=== PATIENT | male | born 1980 | race Caucasian/White ===

== ENCOUNTER 2016-12-01 20:46 | Inpatient (IN) | payer OTHER ==
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
[2016-12-01] MEDS ORDERED: SODIUM CHLORIDE 0.9% 500 ML INFUS.BAG IV ONE ×2 (22:15→22:54)
[2016-12-01] MEDS ORDERED: FAMOTIDINE 20 MG/50 ML IVPB 50 ML IVPB ONE ×2 (22:15→22:16)
[2016-12-01] MEDS ORDERED: ONDANSETRON 4 MG/2 ML VIAL IVPB ONE (22:15)
[2016-12-01] MEDS ORDERED: ONDANSETRON 4 MG/2 ML VIAL ONE (22:16)
[2016-12-01 22:34] LABS: BASOPHIL 0.3 % (0-2.0); EOSINOPHIL 0.1 % (0-4.5); MCH 30.5 pg (25.7-33.7); MCHC 34.3 g/dl (32.0-35.9); MEAN PLT VOLUME 7.2 fl (7.5-11.1); NEUTROPHILS 85.1 % (42.8-82.8); WHITE BLOOD COUNT 16.3 K/mm3 (4.0-10.0)
[2016-12-01 22:36] LABS: PLATELET COUNT 308 K/MM3 (134-434)
[2016-12-01 22:59] LABS: BILIRUBIN,TOTAL 1.5 mg/dL (0.2-1.0); CALCIUM 11.2 mg/dL (8.5-10.1); CREATININE 1.9 mg/dL (0.7-1.3); TOT PROT 8.6 g/dl (6.4-8.2)
[2016-12-01] MEDS ORDERED: morphine CARPU-JECT 2 MG/1 ML DISP.SYRIN IVPUSH ONE (23:11)
[2016-12-01] MEDS ORDERED: morphine CARPU-JECT 2 MG/1 ML DISP.SYRIN ONE (23:15)
[2016-12-01] MEDS ORDERED: METOCLOPRAMIDE HCL INJECTION 10 MG/2 ML VIAL IVPB ONE (23:17)
[2016-12-01] MEDS ORDERED: METOCLOPRAMIDE HCL INJECTION 10 MG/2 ML VIAL ONE (23:19)
[2016-12-02] MEDS ORDERED: METRONIDAZOLE 500 MG PREMIXED 100 ML IVPB ONE ×2 (01:28→01:34)
[2016-12-02] MEDS ORDERED: LEVOFLOXACIN 500 MG IVPB 100 ML IVPB ONE ×2 (01:28→01:34)
[2016-12-02] MEDS ORDERED: morphine CARPU-JECT 2 MG/1 ML DISP.SYRIN IVPUSH ONE (01:30)
[2016-12-02] MEDS ORDERED: morphine CARPU-JECT 2 MG/1 ML DISP.SYRIN ONE (01:33)
[2016-12-02] MEDS ORDERED: KETOROLAC TROMETHAMINE 30 MG/1 ML VIAL IVPUSH ONE (02:03)
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
[2016-12-02] MEDS ORDERED: ACETAMINOPHEN 1000 MG/100 ML VIAL (NON FORMULARY) IVPB PRN (02:07)
[2016-12-02] MEDS ORDERED: SODIUM CHLORIDE 1,000 ML IV SCH (02:15)
[2016-12-02] MEDS ORDERED: KETOROLAC TROMETHAMINE 30 MG/1 ML VIAL ONE (02:15)
[2016-12-02] MEDS: FOLIC ACID INJECTION - 1 MG, THIAMINE HCL 100 MG, MULTIVIT INJECTION ADULT 10 ML in SOD... IVPB ONE ×2 (02:30→04:00)
[2016-12-02 03:57] VITALS: BMI 28.0
[2016-12-02] MEDS: LORAZEPAM CARPU-JECT 2 MG/ML DISP.SYRIN IVPUSH PRN (04:30)
[2016-12-02 08:30] LABS: BASOPHIL 0.3 % (0-2.0); EOSINOPHIL 0.4 % (0-4.5); MCH 31.2 pg (25.7-33.7); MCHC 34.9 g/dl (32.0-35.9); MEAN CELL VOLUME 89.4 fl (80-96); MEAN PLT VOLUME 7.4 fl (7.5-11.1); NEUTROPHILS 81.5 % (42.8-82.8); PLATELET COUNT 172 K/MM3 (134-434); RDW 13.9 % (11.9-15.9)
[2016-12-02 08:35] LABS: WHITE BLOOD COUNT 9.9 K/mm3 (4.0-10.0)
[2016-12-02 08:46] LABS: ALBUMIN 3.7 g/dl (3.4-5.0); ANION GAP 13 (8-16); CALCIUM 8.9 mg/dL (8.5-10.1); CO2 21 mmol/L (21-32); GLUCOSE,RANDOM 94 mg/dL (74-106); MAGNESIUM 1.7 mg/dL (1.8-2.4); SGPT/ALT 42 U/L (12-78)
[2016-12-02] MEDS: ONDANSETRON 4 MG/2 ML VIAL IVPB PRN ×2 (08:47→12:28)
[2016-12-02 08:49] LABS: ALK PHOS 62 U/L (45-117); BILIRUBIN,TOTAL 1.2 mg/dL (0.2-1.0); CREATININE 1.3 mg/dL (0.7-1.3); PHOSPHOROUS 3.3 mg/dL (2.5-4.9); SGOT/AST 32 U/L (15-37); TOT PROT 6.3 g/dl (6.4-8.2)
[2016-12-02 09:16] LABS: URINE APPEARANCE SLCLOUDY; URINE BILIRUBIN NEGATIVE (NEGATIVE); URINE BLOOD NEGATIVE (NEGATIVE); URINE COLOR DKYELLOW; URINE GLUCOSE (UA) NEGATIVE (NEGATIVE); URINE KETONE TRACE (NEGATIVE); URINE LEUK ESTERASE NEGATIVE (NEGATIVE); URINE NITRITE NEGATIVE (NEGATIVE); URINE UROBILINOGEN NEGATIVE E.U./dl (0.2-1.0)
[2016-12-02 09:21] LABS: URINE PROTEIN 1+ (NEGATIVE)
[2016-12-02 09:23] LABS: CALCIUM OXALATE CRYSTALS RARE /hpf (NONE SEEN); URINE HYALINE CAST 7 /lpf; URINE MUCUS RARE; URINE RBC 7 /hpf (0-3); URINE WBC 2 /hpf (3-5)
[2016-12-02] MEDS ORDERED: METRONIDAZOLE 500 MG PREMIXED 100 ML IVPB SCH (10:00)
[2016-12-02] MEDS ORDERED: LACTATED RINGERS SOLUTION 1,000 ML IV SCH (10:15)
--- NOTE | 2016-12-02 10:17 | EKG ---
Test Reason : Blood Pressure : / mmHG Vent. Rate : 108 BPM Atrial Rate : 108 BPM P-R Int : 126 ms QRS Dur : 088 ms QT Int : 308 ms P-R-T Axes : 053 072 017 degrees QTc Int : 412 ms SINUS TACHYCARDIA POSSIBLE LEFT ATRIAL ENLARGEMENT BORDERLINE ECG NO PREVIOUS ECGS AVAILABLE Confirmed by FAUZIA FAITH MD ([id number]) on 12/02/2016 10:17:18 AM Referred By: Confirmed By:FAUZIA FAITH MD
--- NOTE | 2016-12-02 10:23 | HOSP ---
Physical Examination Vital Signs: Vital Signs Temperature 98 F 12/02/16 06:39 Pulse Rate 67 12/02/16 06:39 Respiratory Rate 20 12/02/16 06:39 Blood Pressure 144/86 12/02/16 06:39 O2 Sat by Pulse Oximetry (%) 97 12/02/16 03:15 Labs: CBC, BMP 12/02/16 07:00 12/02/16 07:00 Hospitalist Encounter Assessment: Subjective: PT seen and examined. His abd pain has improved from admission, however now he feels a soreness. He is nauseated and reluctant to eat. Mother at bedside. Objective: PE Neuro: alert, awake, cn 2-12 intact, denies hallucinations, withdrawal symptoms , anxiety Pulm: CTAB CV: s1 s2 rrr no mrg Abd: + tenderness diffuse, pinpoint to LLQ/epigastric region, refers to back and RUQ + BS Ext: Warm, no edema, L patellar abrasion CBCD WBC 9.9 K/mm3 (4.0-10.0) D 12/02/16 07:00 RBC 4.73 M/mm3 (4.00-5.60) 12/02/16 07:00 Hgb 14.8 GM/dL (11.7-16.9) D 12/02/16 07:00 Hct 42.3 % (35.4-49) D 12/02/16 07:00 MCV 89.4 fl (80-96) 12/02/16 07:00 MCHC 34.9 g/dl (32.0-35.9) 12/02/16 07:00 RDW 13.9 % (11.9-15.9) 12/02/16 07:00 Plt Count 172 K/MM3 (134-434) D 12/02/16 07:00 MPV 7.4 fl (7.5-11.1) L 12/02/16 07:00 CMP Sodium 138 mmol/L (136-145) 12/02/16 07:00 Potassium 3.9 mmol/L (3.5-5.1) 12/02/16 07:00 Chloride 104 mmol/L (98-107) 12/02/16 07:00 Carbon Dioxide 21 mmol/L (21-32) 12/02/16 07:00 Anion Gap 13 (8-16) 12/02/16 07:00 BUN 11 mg/dL (7-18) 12/02/16 07:00 Creatinine 1.3 mg/dL (0.7-1.3) D 12/02/16 07:00 Creat Clearance w eGFR > 60 (>60) 12/02/16 07:00 Calcium 8.9 mg/dL (8.5-10.1) D 12/02/16 07:00 Total Bilirubin 1.2 mg/dL (0.2-1.0) H 12/02/16 07:00 AST 32 U/L (15-37) D 12/02/16 07:00 ALT 42 U/L (12-78) D 12/02/16 07:00 Alkaline Phosphatase 62 U/L (45-117) D 12/02/16 07:00 Total Protein 6.3 g/dl (6.4-8.2) L D 12/02/16 07:00 Albumin 3.7 g/dl (3.4-5.0) D 12/02/16 07:00 12/01/16 12/02/16 21:00 07:00 Total Amylase 757 H Lipase 63646 H 82957 H 12/02/16 07:00 Magnesium 1.7 L Current Medications Generic Name Dose Route Start Last Admin Trade Name Freq PRN Reason Stop Dose Admin Acetaminophen 1,000 mg 12/02/16 02:07 Ofirmev Injection - IVPB 12/02/16 20:08 Q6H PRN FEVER OR PAIN Chlordiazepoxide HCl 25 mg 12/02/16 10:28 Librium - PO 12/05/16 10:27 Q4H PRN WITHDRAWAL(CONT SUBST) Chlordiazepoxide HCl 50 mg 12/02/16 11:00 Librium - PO 12/03/16 05:01 [id number] RICARDO Chlordiazepoxide HCl 25 mg 12/03/16 11:00 Librium - PO 12/04/16 05:01 [id number] RICARDO Chlordiazepoxide HCl 15 mg 12/04/16 11:00 Librium - PO 12/05/16 05:01 [id number] RICARDO Folic Acid 1 mg 12/02/16 12:00 Folic Acid - PO DAILY RICARDO Heparin Sodium (Porcine) 5,000 unit 12/02/16 22:00 Heparin - SQ TID RICARDO Pantoprazole Sodium 100 mls @ 200 mls/hr 12/02/16 10:00 12/02/16 11:28 Protonix 40mg Ivpb (Pre-Docked) IVPB 200 mls/hr DAILY RICARDO Administration Lactated Ringer's 1,000 mls @ 100 mls/hr 12/02/16 10:15 12/02/16 11:25 Lactated Ringers Solution IV 100 mls/hr ASDIR RICARDO Administration Lorazepam 1 mg 12/02/16 02:09 12/02/16 04:30 Ativan Injection - IVPUSH 1 mg Q2H PRN Administration ANXIETY Morphine Sulfate 2 mg 12/02/16 10:57 Morphine Injection - IVPUSH Q4H PRN PAIN Multivitamins/Minerals/Vitamin C 1 tab 12/02/16 12:00 Tab-A-Vit - PO DAILY RICARDO Nicotine 21 mg 12/02/16 10:00 12/02/16 11:28 Nicoderm Patch - TD Not Given DAILY RICARDO Ondansetron HCl 4 mg 12/02/16 02:06 12/02/16 08:47 Zofran Injection IVPB 4 mg Q4H PRN Administration NAUSEA AND/OR VOMITING Thiamine HCl 100 mg 12/02/16 12:00 Vitamin B1 - PO DAILY RICARDO Assessment: 36 year old male with hx of ETOH abuse, peptic ulcer disease admitted with abdominal pain. Plan: 1. Acute pancreatitis d/t ETOH - Lipase levels increased today - Will start LR at 100cc/hr - Lipid panel ordered - CTAP final report pending, prelim shows acute pancreatitis - Trial clear liquids 2. ETOH abuse - No active withdrawal symptoms - D/w Dr. Gene Atkins, he is starting librium, pt is active drinker - Will discuss rehab - Daily MVI, Thiamine, folic acid 3. HTN - Likely pain related - Will monitor and manage as needed 4. JOSH - Resolved with fluids - Renal US today - Avoid nephrotoxic agents - Renal consulted 5. Hx peptic ulcer - Protonix IV 6. Hypomagnesemia - Replete 2gm mg x1
[2016-12-02] MEDS ORDERED: chlordiazePOXIDE HCL 25 MG CAPSULE PO PRN (10:28)
--- NOTE | 2016-12-02 10:41 | CONSULT ---
Consult Detox [facility] Reason for Current Admission/Consult: alcohol withdrawal sx & acute pancreatitis Referred by:: Don Álvarez NP - History History of Present Illness: 36 y/o man with a long hx. of alcoholism is admitted because of acute pancreatitis. - History Source History Provided By: Patient, Medical Record - Alcohol/Substance Use Hx Alcohol Use: Yes - Current Drug/Alcohol Use Alcohol Route: Oral Frequency: Daily Amount used: Beer 1-2(6 pack) Date of Last Use: 11/30/16 - Significant Medical Findings: Laboratory Tests 12/01/16 12/01/16 12/02/16 21:00 21:00 07:00 WBC 16.3 H RBC 5.67 H Hgb 17.3 H Hct 50.4 H MCV 89.0 MCHC 34.3 RDW 14.0 Plt Count 308 MPV 7.2 L Neutrophils % 85.1 H Lymphocytes % 4.5 L Monocytes % 10.0 Eosinophils % 0.1 Basophils % 0.3 Sodium 134 L Potassium 4.7 Chloride 95 L Carbon Dioxide 26 Anion Gap 13 BUN 11 Creatinine 1.9 H Creat Clearance w eGFR 39.87 Random Glucose 128 H Calcium 11.2 H Phosphorus Magnesium Total Bilirubin 1.5 H AST 44 H ALT 62 Alkaline Phosphatase 87 LD Total Cancelled Total Protein 8.6 H Albumin 5.0 Total Amylase 757 H Lipase 84055 H Urine Color Urine Appearance Urine pH Ur Specific Irons Urine Protein Urine Glucose (UA) Urine Ketones Urine Blood Urine Nitrite Urine Bilirubin Urine Urobilinogen Ur Leukocyte Esterase Urine RBC Urine WBC Ur Epithelial Cells Calcium Oxalate Crystal Hyaline Casts Urine Mucus Blood Type Antibody Screen 12/02/16 12/02/16 12/02/16 07:00 07:00 07:00 WBC 9.9 D RBC 4.73 Hgb 14.8 D Hct 42.3 D MCV 89.4 MCHC 34.9 RDW 13.9 Plt Count 172 D MPV 7.4 L Neutrophils % 81.5 Lymphocytes % 8.0 D Monocytes % 9.8 Eosinophils % 0.4 D Basophils % 0.3 Sodium Cancelled 138 Potassium Cancelled 3.9 Chloride Cancelled 104 Carbon Dioxide Cancelled 21 Anion Gap Cancelled 13 BUN Cancelled 11 Creatinine Cancelled 1.3 D Creat Clearance w eGFR Cancelled > 60 Random Glucose Cancelled 94 D Calcium Cancelled 8.9 D Phosphorus 3.3 Magnesium 1.7 L Total Bilirubin Cancelled 1.2 H AST Cancelled 32 D ALT Cancelled 42 D Alkaline Phosphatase Cancelled 62 D LD Total 193 Total Protein Cancelled 6.3 L D Albumin Cancelled 3.7 D Total Amylase Lipase 45124 H Urine Color Urine Appearance Urine pH Ur Specific Irons Urine Protein Urine Glucose (UA) Urine Ketones Urine Blood Urine Nitrite Urine Bilirubin Urine Urobilinogen Ur Leukocyte Esterase Urine RBC Urine WBC Ur Epithelial Cells Calcium Oxalate Crystal Hyaline Casts Urine Mucus Blood Type Antibody Screen 12/02/16 12/02/16 12/02/16 08:15 08:25 08:30 WBC RBC Hgb Hct MCV MCHC RDW Plt Count MPV Neutrophils % Lymphocytes % Monocytes % Eosinophils % Basophils % Sodium Potassium Chloride Carbon Dioxide Anion Gap BUN Creatinine Creat Clearance w eGFR Random Glucose Calcium Phosphorus Magnesium Total Bilirubin AST ALT Alkaline Phosphatase LD Total Total Protein Albumin Total Amylase Lipase Urine Color Dkyellow Urine Appearance Slcloudy Urine pH 6.0 Ur Specific Irons 1.014 Urine Protein 1+ H Urine Glucose (UA) Negative Urine Ketones Trace H Urine Blood Negative Urine Nitrite Negative Urine Bilirubin Negative Urine Urobilinogen Negative Ur Leukocyte Esterase Negative Urine RBC 7 Urine WBC 2 Ur Epithelial Cells Rare Calcium Oxalate Crystal Rare Hyaline Casts 7 Urine Mucus Rare Blood Type A POSITIVE A POSITIVE Antibody Screen Negative labs noted, amylase & lipase are elevated CIWA Score - CIWA Score Nausea/Vomitin Muscle Tremors: 4-Moderate,w/Arms Extend Anxiety: 4-Mod. Anxious/Guarded Agitation: 4-Moderately Restless Paroxysmal Sweats: 3 Orientation: 0-Oriented Tacttile Disturbances: 0-None Auditory Disturbances: 0-None Visual Disturbances: 0-None Headache: 0-None Present CIWA-Ar Total Score: 20 Assessment Plan - Diagnosis (1) Pancreatitis Status: Acute Qualifiers: Qualified Code(s): K85.2 - Alcohol induced acute pancreatitis (2) Alcohol dependence with uncomplicated withdrawal Status: Acute - Plan Plan: Start librium detox protocol - Medication Detox Regimen/Protocol: Librium
[2016-12-02] MEDS ORDERED: morphine CARPU-JECT 2 MG/1 ML DISP.SYRIN IVPUSH PRN (10:57)
--- NOTE | 2016-12-02 11:02 | CONSULT ---
Consult - text type - Consultation Consultation Note: Renal Consult for JOSH This is a 36 year old gentleman with PMhx of Peptic Ulcer disease, Choledolithiasis s/p cholecystecomy who presented with Abd pain and found to have acute alcoholic panreatitis with JOSH with BUN/Cr of 11/1.9. Pt states that he was drinking about 6-8 bottle of beer a day at home. Pt also used 6 200mg Advils the day prior to presentation. No fever or chills. + Nausea. + abd tenderness. No flank pain. + dark urine. + hx of hematuria as a teenager. No contrast exposure. Denies any sob, chest pain, JERRY, confusion or lethargy. PMhx: as above Allergies: NKDA Family hx: NC Social Hx: + ETOH ROS: as per HPI Home Meds: Medication Instructions Recorded Omeprazole 10 mg PO DAILY 12/01/16 Vital Signs Temperature 98 F 12/02/16 06:39 Pulse Rate 67 12/02/16 06:39 Respiratory Rate 20 12/02/16 06:39 Blood Pressure 144/86 12/02/16 06:39 O2 Sat by Pulse Oximetry (%) 97 12/02/16 03:15 Intake & Output 11/29/16 11/30/16 12/01/16 12/02/16 23:59 23:59 23:59 23:59 Weight 240 lb 236 lb 4 oz Gen: NAD, awake and alert HEENT: NC/AT, Dry MM, No JVD CVS: RRR, No M/R Lungs: CTA, no rales or wheeze Abd: Soft + tenderness diffusely btu most in the epigastric region Ext: No edema, clubbing or cyanosis : No bladder distension Neuro: No focal defects CBC, BMP 12/02/16 07:00 12/02/16 07:00 Laboratory Tests 12/02/16 12/02/16 12/02/16 07:00 07:00 07:00 MCV 89.4 Phosphorus 3.3 Magnesium 1.7 L Total Bilirubin 1.2 H Lipase 91349 H Urine Protein Urine Ketones U Random Total Protein Pending 12/02/16 08:15 MCV Phosphorus Magnesium Total Bilirubin Lipase Urine Protein 1+ H Urine Ketones Trace H U Random Total Protein Laboratory Tests 12/02/16 07:00 Sodium 138 Potassium 3.9 Chloride 104 Carbon Dioxide 21 Anion Gap 13 BUN 11 Creatinine 1.3 D Creat Clearance w eGFR > 60 Current Medications Acetaminophen (Ofirmev Injection -) 1,000 mg IVPB Q6H PRN PRN Reason: FEVER OR PAIN Stop: 12/02/16 20:08 Chlordiazepoxide HCl (Librium -) 25 mg PO Q4H PRN PRN Reason: WITHDRAWAL(CONT SUBST) Stop: 12/05/16 10:27 Chlordiazepoxide HCl (Librium -) 50 mg PO [id number] [facility] Stop: 12/03/16 05:01 Chlordiazepoxide HCl (Librium -) 25 mg PO [id number] [facility] Stop: 12/04/16 05:01 Chlordiazepoxide HCl (Librium -) 15 mg PO [id number] [facility] Stop: 12/05/16 05:01 Heparin Sodium (Porcine) (Heparin -) 5,000 unit SQ TID RICARDO Pantoprazole Sodium (Protonix 40mg Ivpb (Pre-Docked)) 100 mls @ 200 mls/hr IVPB DAILY [facility] Metronidazole (Flagyl 500mg Premixed Ivpb -) 100 mls @ 100 mls/hr IVPB Q8H-IV RICARDO Levofloxacin (Levaquin 500 Mg Premixed Ivpb -) 100 mls @ 100 mls/hr IVPB DAILY RICARDO Lactated Ringer's (Lactated Ringers Solution) 1,000 mls @ 100 mls/hr IV ASDIR RICARDO Lorazepam (Ativan Injection -) 1 mg IVPUSH Q2H PRN PRN Reason: ANXIETY Last Admin: 12/02/16 04:30 Dose: 1 mg Morphine Sulfate (Morphine Injection -) 2 mg IVPUSH Q4H PRN PRN Reason: PAIN Nicotine (Nicoderm Patch -) 21 mg TD DAILY [facility] Ondansetron HCl (Zofran Injection) 4 mg IVPB Q4H PRN PRN Reason: NAUSEA AND/OR VOMITING Last Admin: 12/02/16 08:47 Dose: 4 mg Thiamine HCl (Vitamin B1 Injection -) 200 mg IVPB DAILY [facility] A/p 36 year old gentleman with PMhx of Peptic Ulcer disease, Choledolithiasis s/p cholecystecomy who presented with Abd pain and found to have acute alcoholic panreatitis with JOSH with BUN/Cr of 11/1.9. #Acute Kidney Injury secondary to volume depletion +/- NSAID use in setting fo acute pancreatitis Renal function improving with IVF Renal US performed, results pending Continue isotonic saline (agree with LR at 100cc per hour) Avoid NSAIDs for pain control as pt still mildly volume depleted Trend BUN/Cr Check UPCR (pending) #Acute Alcoholic Pancreatitis Continue IVF, pain control Trend Lipase #ETOH Abuse Continue Withdrawal protocol #Hypomagnesemia Mag sulfate 2g IV today Thank you Will follow Jayjay Pfeiffer DO
[2016-12-02] MEDS ORDERED: MAGNESIUM SULF 50% (8.12 MEQ/2 ML-1 GM VIAL) IVPB ONE (11:08)
[2016-12-02] MEDS: NICOTINE 21 MG/24 HOURS TOPICAL PATCH TD SCH (11:28)
[2016-12-02] MEDS: PANTOPRAZOLE SODIUM 100 ML IVPB SCH (11:28)
[2016-12-02] MEDS: chlordiazePOXIDE HCL 25 MG CAPSULE PO SCH ×4 (12:02→22:11)
[2016-12-02] MEDS: THIAMINE HCL 100 MG TABLET (FP) PO SCH (12:14)
[2016-12-02] MEDS: MULTIVITAMINS (DAILY MVI) TABLET (FP) PO SCH (12:14)
[2016-12-02] MEDS: FOLIC ACID 1 MG TABLET (FP) PO SCH (12:14)
[2016-12-02 14:58] LABS: URINE MARIJUANA THC NEGATIVE ng/ml (CUTOFF=50)
[2016-12-02 15:56] LABS: CHOLESTEROL 101 mg/dL (50-200); LDL CHOLESTEROL (ONLY SJRH) 41 mg/dL (5-100)
[2016-12-02] MEDS ORDERED: LABETALOL HCL 200 MG TABLET (FP) PO ONE (17:25)
[2016-12-02] MEDS: SIMETHICONE 80 MG TAB.CHEW (FP) PO PRN (18:32)
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
[2016-12-02] MEDS: LACTATED RINGERS SOLUTION 1,000 ML IV SCH ×2 (19:15→21:52)
[2016-12-02] MEDS: HEPARIN NA (PORCINE) 5,000 UNITS/ML 1ML VIAL SQ SCH (22:12)
[2016-12-03] MEDS: LACTATED RINGERS SOLUTION 1,000 ML IV SCH ×3 (03:05→20:49)
[2016-12-03] MEDS: chlordiazePOXIDE HCL 25 MG CAPSULE PO SCH ×4 (05:00→22:33)
[2016-12-03] MEDS: HEPARIN NA (PORCINE) 5,000 UNITS/ML 1ML VIAL SQ SCH ×3 (05:58→22:34)
[2016-12-03 07:37] LABS: BASOPHIL 0.4 % (0-2.0); EOSINOPHIL 0.7 % (0-4.5); MCH 31.6 pg (25.7-33.7); MCHC 35.1 g/dl (32.0-35.9); MEAN CELL VOLUME 89.8 fl (80-96); MEAN PLT VOLUME 7.8 fl (7.5-11.1); NEUTROPHILS 81.6 % (42.8-82.8); PLATELET COUNT 133 K/MM3 (134-434); RDW 13.9 % (11.9-15.9)
[2016-12-03 08:06] LABS: ALBUMIN 3.1 g/dl (3.4-5.0); ALK PHOS 51 U/L (45-117); ANION GAP 11 (8-16); CALCIUM 8.1 mg/dL (8.5-10.1); CO2 25 mmol/L (21-32); CREATININE 0.9 mg/dL (0.7-1.3); GLUCOSE,RANDOM 81 mg/dL (74-106); SGOT/AST 26 U/L (15-37); SGPT/ALT 29 U/L (12-78); TOT PROT 5.8 g/dl (6.4-8.2)
[2016-12-03] MEDS ORDERED: LEVOFLOXACIN 500 MG IVPB 100 ML IVPB SCH (10:00)
[2016-12-03] MEDS ORDERED: THIAMINE HCL 200 MG/2 ML VIAL IVPB SCH (10:00)
[2016-12-03] MEDS: MULTIVITAMINS (DAILY MVI) TABLET (FP) PO SCH (10:15)
[2016-12-03] MEDS: THIAMINE HCL 100 MG TABLET (FP) PO SCH (10:15)
[2016-12-03] MEDS: PANTOPRAZOLE SODIUM 100 ML IVPB SCH (10:15)
[2016-12-03] MEDS: SIMETHICONE 80 MG TAB.CHEW (FP) PO PRN (10:16)
[2016-12-03] MEDS: NICOTINE 21 MG/24 HOURS TOPICAL PATCH TD SCH (10:16)
[2016-12-03] MEDS: FOLIC ACID 1 MG TABLET (FP) PO SCH (10:16)
--- NOTE | 2016-12-03 11:28 | PN ---
Progress Note (short form) - Note Progress Note: Renal Follow up for JOSH pt seen and examined at the bedside continues to have abd pain but now lower in the abd has Nausea tolerating some liquid diet Vital Signs Temperature 98.2 F 12/03/16 06:58 Pulse Rate 112 H 12/03/16 06:58 Respiratory Rate 20 12/03/16 06:58 Blood Pressure 136/80 12/03/16 06:58 O2 Sat by Pulse Oximetry (%) 97 12/02/16 21:00 Intake & Output 11/30/16 12/01/16 12/02/16 12/03/16 23:59 23:59 23:59 23:59 Intake Total 1750 1400 Output Total 1800 Balance -50 1400 Weight 240 lb 236 lb 4 oz Gen: NAD, awake and alert CVS: RRR, No M/R Lungs: CTA, no rales or wheeze Abd: Soft + tenderness Ext: No edema, clubbing or cyanosis CBC, BMP 12/03/16 06:15 12/03/16 06:15 Current Medications Chlordiazepoxide HCl (Librium -) 25 mg PO Q4H PRN PRN Reason: WITHDRAWAL(CONT SUBST) Stop: 12/05/16 10:27 Chlordiazepoxide HCl (Librium -) 25 mg PO [id number] [facility] Stop: 12/04/16 05:01 Last Admin: 12/03/16 10:16 Dose: 25 mg Chlordiazepoxide HCl (Librium -) 15 mg PO [id number] [facility] Stop: 12/05/16 05:01 Folic Acid (Folic Acid -) 1 mg PO DAILY [facility] Last Admin: 12/03/16 10:16 Dose: 1 mg Heparin Sodium (Porcine) (Heparin -) 5,000 unit SQ TID [facility] Last Admin: 12/03/16 05:58 Dose: 5,000 unit Pantoprazole Sodium (Protonix 40mg Ivpb (Pre-Docked)) 100 mls @ 200 mls/hr IVPB DAILY [facility] Last Admin: 12/03/16 10:15 Dose: 200 mls/hr Lactated Ringer's (Lactated Ringers Solution) 1,000 mls @ 200 mls/hr IV ASDIR [facility] Last Admin: 12/03/16 10:16 Dose: 200 mls/hr Lorazepam (Ativan Injection -) 1 mg IVPUSH Q2H PRN PRN Reason: ANXIETY Last Admin: 12/02/16 04:30 Dose: 1 mg Morphine Sulfate (Morphine Injection -) 2 mg IVPUSH Q4H PRN PRN Reason: PAIN Multivitamins/Minerals/Vitamin C (Tab-A-Vit -) 1 tab PO DAILY [facility]ICARDO Last Admin: 12/03/16 10:15 Dose: 1 tab Nicotine (Nicoderm Patch -) 21 mg TD DAILY [facility] Last Admin: 12/03/16 10:16 Dose: 21 mg Ondansetron HCl (Zofran Injection) 4 mg IVPB Q4H PRN PRN Reason: NAUSEA AND/OR VOMITING Last Admin: 12/02/16 12:28 Dose: 4 mg Simethicone (Mylicon -) 80 mg PO QID PRN PRN Reason: GAS Last Admin: 12/03/16 10:16 Dose: 80 mg Thiamine HCl (Vitamin B1 -) 100 mg PO DAILY [facility] Last Admin: 12/03/16 10:15 Dose: 100 mg A/p 36 year old gentleman with PMhx of Peptic Ulcer disease, Choledolithiasis s/p cholecystecomy who presented with Abd pain and found to have acute alcoholic panreatitis with JOSH with BUN/Cr of 11/1.9. #Acute Kidney Injury secondary to volume depletion +/- NSAID use in setting fo acute pancreatitis Renal function now improved to baseline continue isotonic fluids for management of pancreatitis #Acute Alcoholic Pancreatitis Continue IVF, pain control Trend Lipase GI following Jayjay Pfeiffer DO
[2016-12-03] MEDS: LABETALOL HCL 200 MG TABLET (FP) PO PRN (13:39)
--- NOTE | 2016-12-03 18:32 | PN ---
Physical Exam: SUBJECTIVE: Patient seen and examined. He is tolerating clears, he feels someone improved. he had a bowel movement OBJECTIVE: Vital Signs Period Temp Pulse Resp BP Sys/Malhotra Pulse Ox Last 24 Hr 98 F-100.6 F 104-116 18-20 136-158/80-106 95-97 PE Neuro: alert, awake, cn 2-12 intact Pulm: CTAB CV: s1 s2 rrr no mrg Abd: + tenderness epigastric region + bs, soft Ext: Warm, no edema Laboratory Results - last 24 hr 12/03/16 12/03/16 06:15 06:15 WBC 13.0 H D RBC 4.31 Hgb 13.6 Hct 38.7 MCV 89.8 MCHC 35.1 RDW 13.9 Plt Count 133 L D MPV 7.8 Neutrophils % 81.6 Lymphocytes % 8.8 Monocytes % 8.5 Eosinophils % 0.7 Basophils % 0.4 Sodium 138 Potassium 3.5 Chloride 102 Carbon Dioxide 25 Anion Gap 11 BUN 6 L D Creatinine 0.9 D Creat Clearance w eGFR > 60 Random Glucose 81 Calcium 8.1 L Total Bilirubin 1.0 AST 26 ALT 29 D Alkaline Phosphatase 51 Total Protein 5.8 L Albumin 3.1 L Lipase 3621 H 12/02/16 07:00 Triglycerides 52 Cholesterol 101 Total LDL Cholesterol 41 HDL Cholesterol 63 H Active Medications Generic Name Dose Route Start Last Admin Trade Name Freq PRN Reason Stop Dose Admin Chlordiazepoxide HCl 25 mg 12/02/16 10:28 Librium - PO 12/05/16 10:27 Q4H PRN WITHDRAWAL(CONT SUBST) Chlordiazepoxide HCl 25 mg 12/03/16 11:00 12/03/16 17:28 Librium - PO 12/04/16 05:01 25 mg [id number] RICARDO Administration Chlordiazepoxide HCl 15 mg 12/04/16 11:00 Librium - PO 12/05/16 05:01 [id number]-WMB RICARDO Folic Acid 1 mg 12/02/16 12:00 12/03/16 10:16 Folic Acid - PO 1 mg DAILY RICARDO Administration Heparin Sodium (Porcine) 5,000 unit 12/02/16 22:00 12/03/16 13:39 Heparin - SQ 5,000 unit TID RICARDO Administration Pantoprazole Sodium 100 mls @ 200 mls/hr 12/02/16 10:00 12/03/16 10:15 Protonix 40mg Ivpb (Pre-Docked) IVPB 200 mls/hr DAILY RICARDO Administration Lactated Ringer's 1,000 mls @ 200 mls/hr 12/02/16 18:52 12/03/16 10:16 Lactated Ringers Solution IV 200 mls/hr ASDIR RICARDO Administration Labetalol HCl 200 mg 12/03/16 11:29 12/03/16 13:39 Normodyne - PO 200 mg Q6H PRN Administration HYPERTENSION Lorazepam 1 mg 12/02/16 02:09 12/02/16 04:30 Ativan Injection - IVPUSH 1 mg Q2H PRN Administration ANXIETY Morphine Sulfate 2 mg 12/02/16 10:57 Morphine Injection - IVPUSH Q4H PRN PAIN Multivitamins/Minerals/Vitamin C 1 tab 12/02/16 12:00 12/03/16 10:15 Tab-A-Vit - PO 1 tab DAILY RICARDO Administration Nicotine 21 mg 12/02/16 10:00 12/03/16 10:16 Nicoderm Patch - TD 21 mg DAILY RICARDO Administration Ondansetron HCl 4 mg 12/02/16 02:06 12/02/16 12:28 Zofran Injection IVPB 4 mg Q4H PRN Administration NAUSEA AND/OR VOMITING Simethicone 80 mg 12/02/16 18:23 12/03/16 10:16 Mylicon - PO 80 mg QID PRN Administration GAS Thiamine HCl 100 mg 12/02/16 12:00 12/03/16 10:15 Vitamin B1 - PO 100 mg DAILY RICARDO Administration Assessment: 36 year old male with hx of ETOH abuse, peptic ulcer disease admitted with abdominal pain. Plan: 1. Acute pancreatitis d/t ETOH - Lipase improved - Continue LR at 200cc/hr - Advance to full liquids 2. ETOH abuse - Continue librium detox - Discussed rehab options, pt will think about them - Daily MVI, Thiamine, folic acid 3. HTN - Started on labetalol 200mg q6h 4. JOSH - Resolved - Avoid nephrotoxic agents - Renal seeing 5. Hx peptic ulcer - Protonix PO 6. Hypomagnesemia - level in AM Visit type - Emergency Visit Emergency Visit: Yes ED Registration Date: 12/02/16 Care time: The patient presented to the Emergency Department on the above date and was hospitalized for further evaluation of their emergent condition. - New Patient This patient is new to me today: No - Critical Care Critical Care patient: No
[2016-12-03] MEDS: ACETAMINOPHEN 325 MG TABLET (FP) PO PRN (22:38)
--- NOTE | 2016-12-03 23:18 | PN ---
GI Progress Note Subjective: Pain improved, but spiking fever to 101. WBC 16-->9-->13 Marked improvement in renal fxn with normal BUN/Cr LR at 200/hr - Objective Vital Signs: Vital Signs Temperature 101.7 F H 12/03/16 20:56 Pulse Rate 112 H 12/03/16 20:56 Respiratory Rate 18 12/03/16 21:00 Blood Pressure 151/93 12/03/16 20:56 O2 Sat by Pulse Oximetry (%) 95 12/03/16 21:00 Constitutional: Anxious, Diaphoresis HENT: Yes: Normocephalic Neck: Yes: Supple Cardiovascular: Yes: Tachycardia Respiratory: Yes: CTA Bilaterally Gastrointestinal Inspection: Yes: WNL ...Auscultate: Yes: Normoactive Bowel Sounds ...Palpate: Yes: Soft, Tenderness, Epigastium Labs: CBC, BMP 12/03/16 06:15 12/03/16 06:15 Assessment/Plan 36 M with h/o ETOH abuse now with alcohol-induced pancreatitis Rec: Decrease IV to LR 150/ hour Advance diet Re-image pancreas in 24 hours Manage Hypertension Continue Detox protocol Follow closely for detox-related symptoms
[2016-12-03] MEDS ORDERED: LACTATED RINGERS SOLUTION 1,000 ML IV SCH (23:22)
[2016-12-04] MEDS: chlordiazePOXIDE HCL 25 MG CAPSULE PO SCH (05:57)
[2016-12-04] MEDS: ACETAMINOPHEN 325 MG TABLET (FP) PO PRN ×2 (05:57→14:41)
[2016-12-04] MEDS: HEPARIN NA (PORCINE) 5,000 UNITS/ML 1ML VIAL SQ SCH ×3 (06:10→22:24)
[2016-12-04 08:22] LABS: MCH 31.2 pg (25.7-33.7); MCHC 34.2 g/dl (32.0-35.9); MEAN CELL VOLUME 91.1 fl (80-96); PLATELET COUNT 126 K/MM3 (134-434); RDW 13.6 % (11.9-15.9); WHITE BLOOD COUNT 15.6 K/mm3 (4.0-10.0)
[2016-12-04] MEDS ORDERED: PT OWN MED DRAWER 7, Y5N ONE (09:06)
[2016-12-04] MEDS: NICOTINE 21 MG/24 HOURS TOPICAL PATCH TD SCH (09:12)
[2016-12-04] MEDS: FOLIC ACID 1 MG TABLET (FP) PO SCH (09:12)
[2016-12-04] MEDS: THIAMINE HCL 100 MG TABLET (FP) PO SCH (09:12)
[2016-12-04] MEDS: PANTOPRAZOLE 40 MG TABLET (FP) PO SCH (09:12)
[2016-12-04] MEDS: MULTIVITAMINS (DAILY MVI) TABLET (FP) PO SCH (09:12)
[2016-12-04 09:14] LABS: ALBUMIN 2.7 g/dl (3.4-5.0); ANION GAP 11 (8-16); BILIRUBIN,TOTAL 1.4 mg/dL (0.2-1.0); CALCIUM 7.9 mg/dL (8.5-10.1); CO2 26 mmol/L (21-32); CREATININE 0.9 mg/dL (0.7-1.3); GLUCOSE,RANDOM 87 mg/dL (74-106); MAGNESIUM 1.9 mg/dL (1.8-2.4); SGOT/AST 19 U/L (15-37); SGPT/ALT 23 U/L (12-78)
[2016-12-04 09:15] LABS: ALK PHOS 56 U/L (45-117); TOT PROT 5.7 g/dl (6.4-8.2)
[2016-12-04] MEDS ORDERED: POTASSIUM CHLORIDE 40 MEQ/30 ML UNIT DOSE CUP PO ONE (10:15)
[2016-12-04 10:37] LABS: URINE APPEARANCE CLEAR; URINE BILIRUBIN NEGATIVE (NEGATIVE); URINE COLOR LTYELLOW; URINE GLUCOSE (UA) NEGATIVE (NEGATIVE); URINE KETONE NEGATIVE (NEGATIVE); URINE LEUK ESTERASE NEGATIVE (NEGATIVE); URINE NITRITE NEGATIVE (NEGATIVE); URINE PROTEIN NEGATIVE (NEGATIVE); URINE UROBILINOGEN 2.0 E.U/dl E.U./dl (0.2-1.0)
[2016-12-04] MEDS: chlordiazePOXIDE 5 MG CAPSULE PO SCH ×3 (10:40→22:24)
[2016-12-04 10:54] LABS: URINE BLOOD 2+ (NEGATIVE)
--- NOTE | 2016-12-04 10:57 | PN ---
Physical Exam: SUBJECTIVE: Patient seen and examined. He states his tenderness has improved. Denies chills. Events: persistent low grade fevers OBJECTIVE: Vital Signs Period Temp Pulse Resp BP Sys/Malhotra Pulse Ox Last 24 Hr 99.7 F-101.7 F 104-118 18-20 139-151/89-93 95 PE Neuro: alert, awake, cn 2-12 intact Pulm: L base crackles, dry cough noted CV: s1 s2 rrr no mrg Abd: abdominal tenderness improved soft, + bs Ext: Warm, no edema CBCD WBC 15.6 K/mm3 (4.0-10.0) H 12/04/16 06:15 RBC 4.17 M/mm3 (4.00-5.60) 12/04/16 06:15 Hgb 13.0 GM/dL (11.7-16.9) 12/04/16 06:15 Hct 38.0 % (35.4-49) 12/04/16 06:15 MCV 91.1 fl (80-96) 12/04/16 06:15 MCHC 34.2 g/dl (32.0-35.9) 12/04/16 06:15 RDW 13.6 % (11.9-15.9) 12/04/16 06:15 Plt Count 126 K/MM3 (134-434) L 12/04/16 06:15 MPV 8.0 fl (7.5-11.1) 12/04/16 06:15 CMP Sodium 138 mmol/L (136-145) 12/04/16 06:15 Potassium 3.3 mmol/L (3.5-5.1) L 12/04/16 06:15 Chloride 101 mmol/L (98-107) 12/04/16 06:15 Carbon Dioxide 26 mmol/L (21-32) 12/04/16 06:15 Anion Gap 11 (8-16) 12/04/16 06:15 BUN 6 mg/dL (7-18) L 12/04/16 06:15 Creatinine 0.9 mg/dL (0.7-1.3) 12/04/16 06:15 Creat Clearance w eGFR > 60 (>60) 12/04/16 06:15 Calcium 7.9 mg/dL (8.5-10.1) L 12/04/16 06:15 Total Bilirubin 1.4 mg/dL (0.2-1.0) H D 12/04/16 06:15 AST 19 U/L (15-37) D 12/04/16 06:15 ALT 23 U/L (12-78) D 12/04/16 06:15 Alkaline Phosphatase 56 U/L (45-117) 12/04/16 06:15 Total Protein 5.7 g/dl (6.4-8.2) L 12/04/16 06:15 Albumin 2.7 g/dl (3.4-5.0) L 12/04/16 06:15 Urine Test Results Urine Color Ltyellow 12/04/16 09:35 Urine Appearance Clear 12/04/16 09:35 Urine pH 8.0 (5.0-8.0) D 12/04/16 09:35 Ur Specific Wilson 1.003 (1.001-1.035) 12/04/16 09:35 Urine Protein Negative (NEGATIVE) 12/04/16 09:35 Urine Glucose (UA) Negative (NEGATIVE) 12/04/16 09:35 Urine Ketones Negative (NEGATIVE) 12/04/16 09:35 Urine Blood 2+ (NEGATIVE) H 12/04/16 09:35 Urine Nitrite Negative (NEGATIVE) 12/04/16 09:35 Urine Bilirubin Negative (NEGATIVE) 12/04/16 09:35 Ur Leukocyte Esterase Negative (NEGATIVE) 12/04/16 09:35 Urine RBC <1 /hpf (0-3) 12/04/16 09:35 Urine WBC <1 /hpf (3-5) 12/04/16 09:35 Ur Epithelial Cells Rare /hpf (FEW) 12/04/16 09:35 Urine Mucus Rare 12/02/16 08:15 Active Medications Generic Name Dose Route Start Last Admin Trade Name Freq PRN Reason Stop Dose Admin Acetaminophen 650 mg 12/03/16 22:32 12/04/16 05:57 Tylenol - PO 650 mg Q6H PRN Administration FEVER OR PAIN Chlordiazepoxide HCl 25 mg 12/02/16 10:28 Librium - PO 12/05/16 10:27 Q4H PRN WITHDRAWAL(CONT SUBST) Chlordiazepoxide HCl 15 mg 12/04/16 11:00 12/04/16 10:40 Librium - PO 12/05/16 05:01 15 mg [id number] RICARDO Administration Folic Acid 1 mg 12/02/16 12:00 12/04/16 09:12 Folic Acid - PO 1 mg DAILY RICARDO Administration Heparin Sodium (Porcine) 5,000 unit 12/02/16 22:00 12/04/16 06:10 Heparin - SQ 5,000 unit TID RICARDO Administration Labetalol HCl 200 mg 12/03/16 11:29 12/03/16 13:39 Normodyne - PO 200 mg Q6H PRN Administration HYPERTENSION Lorazepam 1 mg 12/02/16 02:09 12/02/16 04:30 Ativan Injection - IVPUSH 1 mg Q2H PRN Administration ANXIETY Multivitamins/Minerals/Vitamin C 1 tab 12/02/16 12:00 12/04/16 09:12 Tab-A-Vit - PO 1 tab DAILY RICARDO Administration Nicotine 21 mg 12/02/16 10:00 12/04/16 09:12 Nicoderm Patch - TD 21 mg DAILY RICARDO Administration Ondansetron HCl 4 mg 12/02/16 02:06 12/02/16 12:28 Zofran Injection IVPB 4 mg Q4H PRN Administration NAUSEA AND/OR VOMITING Pantoprazole Sodium 40 mg 12/04/16 10:00 12/04/16 09:12 Protonix - PO 40 mg DAILY RICARDO Administration Simethicone 80 mg 12/02/16 18:23 12/03/16 10:16 Mylicon - PO 80 mg QID PRN Administration GAS Thiamine HCl 100 mg 12/02/16 12:00 12/04/16 09:12 Vitamin B1 - PO 100 mg DAILY RICARDO Administration Assessment: 36 year old male with hx of ETOH abuse, peptic ulcer disease admitted with abdominal pain found to have acute pancreatitis. Plan: 1. Persistent low grade fevers/Leukocytosis - Concern for ARDS however, CXR shows platelike atelectasis - Stop fluids - Incentive spirometer and ambulation - UA negative - Urine and blood cx pending - CTAP r/o pancreatic necrosis 2. Acute pancreatitis d/t ETOH - Repeat CTAP - Lipase improved - Advance regular diet - GI seeing 3. ETOH abuse - Continue librium detox - Discussed rehab options, pt will think about them - Daily MVI, Thiamine, folic acid 4. HTN - BP controlled - Continue labetalol 200mg q6h 5. JOSH - Resolved - Avoid nephrotoxic agents - Renal seeing 6. Hx peptic ulcer - Protonix PO 7. Hypomagnesemia - Resolved 8. Active smoker - Daily nicotine patch 9. PPX DVT: Heparin TID Visit type - Emergency Visit Emergency Visit: Yes ED Registration Date: 12/02/16 Care time: The patient presented to the Emergency Department on the above date and was hospitalized for further evaluation of their emergent condition. - New Patient This patient is new to me today: No - Critical Care Critical Care patient: No
[2016-12-04 10:58] LABS: URINE RBC <1 /hpf (0-3); URINE WBC <1 /hpf (3-5)
[2016-12-04] MEDS ORDERED: SODIUM CHLORIDE 0.45%/POT 1,000 ML IV SCH (11:45)
--- NOTE | 2016-12-04 19:07 | PN ---
GI Progress Note Subjective: Patient states he is feeling somewhat ill. Abdominal pain improved but still with LUQ/L back pain. Ongoing fevers and leukocytosis CT done today reveals atelectasis, pleural effusions, pancreatic phlegmon-no pseudocyst, abscess or necrosis. - Objective Vital Signs: Vital Signs Temperature 100 F H 12/04/16 16:30 Pulse Rate 104 H 12/04/16 16:30 Respiratory Rate 20 12/04/16 16:30 Blood Pressure 150/95 12/04/16 16:30 O2 Sat by Pulse Oximetry (%) 93 L 12/04/16 09:00 Constitutional: Anxious, Mild Distress HENT: Yes: Normocephalic Neck: Yes: Supple Cardiovascular: Yes: Regular Rate and Rhythm Respiratory: Yes: CTA Bilaterally Gastrointestinal Inspection: Yes: WNL ...Auscultate: Yes: Hypoactive Bowel Sounds ...Palpate: Yes: Tenderness, Epigastium, Other (somewhat tense.) Labs: CBC, BMP 12/04/16 06:15 12/04/16 06:15 Abnormal Lab Results 12/04/16 12/04/16 12/04/16 06:15 06:15 09:35 WBC 15.6 H Plt Count 126 L Potassium 3.3 L BUN 6 L Calcium 7.9 L Total Bilirubin 1.4 H D Total Protein 5.7 L Albumin 2.7 L Lipase 789 H Urine Blood 2+ H - ....Imaging Cat Scan: Report Reviewed Assessment/Plan Evolving pancreatitis. O2 sat 100% Will likely do well. Clinically improved. Cr has dropped but third spacing still a concern Fevers and leukocytosis likely secondary to pancreatic inflammation Cont IVF-d/w Dr Cartagena and will increase to 125/hr LR AbRx started. No objection Tolerating po Start Creon for steatorrhea
[2016-12-04] MEDS: CILASTATIN SODIUM IVPB SCH (22:24)
[2016-12-04] MEDS: IMIPENEM IVPB SCH (22:24)
[2016-12-04] MEDS: SODIUM CHLORIDE IVPB SCH (22:24)
[2016-12-04] MEDS: LIPASE/PROTEASE/AMYLASE 6,000 UNIT CAPSULE PO SCH (22:25)
[2016-12-05] MEDS: IMIPENEM IVPB SCH ×3 (02:08→18:01)
[2016-12-05] MEDS: SODIUM CHLORIDE IVPB SCH ×3 (02:08→18:01)
[2016-12-05] MEDS: CILASTATIN SODIUM IVPB SCH ×3 (02:08→18:01)
[2016-12-05] MEDS: SODIUM CHLORIDE 0.45%/POT 1,000 ML IV SCH ×3 (02:09→20:00)
[2016-12-05] MEDS: LORAZEPAM CARPU-JECT 2 MG/ML DISP.SYRIN IVPUSH PRN (02:26)
[2016-12-05] MEDS: HEPARIN NA (PORCINE) 5,000 UNITS/ML 1ML VIAL SQ SCH ×3 (06:35→22:21)
[2016-12-05] MEDS: chlordiazePOXIDE 5 MG CAPSULE PO SCH (06:54)
[2016-12-05 08:00] LABS: BASOPHIL 0.3 % (0-2.0); EOSINOPHIL 1.3 % (0-4.5); MCH 31.2 pg (25.7-33.7); MCHC 34.8 g/dl (32.0-35.9); MEAN CELL VOLUME 89.9 fl (80-96); MEAN PLT VOLUME 7.9 fl (7.5-11.1); NEUTROPHILS 77.4 % (42.8-82.8); PLATELET COUNT 134 K/MM3 (134-434); RDW 13.7 % (11.9-15.9)
[2016-12-05 08:34] LABS: ALBUMIN 2.7 g/dl (3.4-5.0); ANION GAP 12 (8-16); CALCIUM 8.1 mg/dL (8.5-10.1); CO2 23 mmol/L (21-32); GLUCOSE,RANDOM 74 mg/dL (74-106)
--- NOTE | 2016-12-05 08:34 | CONSULT ---
- Consultation REQUESTING PROVIDER: CONSULT REQUEST: We have been asked to surgically evaluate this patient for ETOH induced pncreatitis PCP:Loretta Ji HISTORY OF PRESENT ILLNESS: Recent/recurrent ETOH intake; admitted w/ abdominal pain and w/u reveals pancreatitis - Past Surgical History Past Surgical History: Yes: Cholecystectomy Medication Instructions Recorded Omeprazole 10 mg PO DAILY 12/01/16 Allergies Allergy/AdvReac Type Severity Reaction Status Date / Time No Known Allergies Allergy Verified 12/01/16 21:11 - Review of Systems CONSTITUTIONAL: Absent: fever, chills, diaphoresis, generalized weakness, malaise, loss of appetite, weight change CARDIOVASCULAR: Absent: chest pain, syncope, palpitations, irregular heart rate, lightheadedness , peripheral edema RESPIRATORY: Absent: cough, shortness of breath, dyspnea with exertion, wheezing, stridor, hemoptysis GASTROINTESTINAL: Absent: abdominal pain, abdominal distension, nausea, vomiting, diarrhea, constipation, melena, hematochezia GENITOURINARY: Absent: dysuria, frequency, urgency, hesitancy, hematuria, flank pain, genital pain MUSCULOSKELETAL: Absent: myalgia, arthralgia, joint swelling, back pain, neck pain SKIN: Absent: rash, itching, pallor HEMATOLOGIC/IMMUNOLOGIC: Absent: easy bleeding, easy bruising, lymphadenopathy NEUROLOGIC: Absent: headache, focal weakness, paresthesias, dizziness, unsteady gait, seizure, mental status changes, bladder or bowel incontinence PSYCHIATRIC: Absent: anxiety, depression, suicidal or homicidal ideation, hallucinations. - Physical Exam GENERAL: Awake, alert, and fully oriented, in no acute distress. HEAD: Normal with no signs of trauma. EYES: PERRL, sclera anicteric, conjunctiva clear. NECK: Normal ROM, supple without lymphadenopathy, JVD, or masses. LUNGS: Clear to auscultation bilat anteriorly. No wheezes, and no crackles. No accessory muscle use. HEART: Regular rate and rhythm. No murmurs ABDOMEN: Soft,minimally tender w/ palpapable epigastric mass/fullness; no flank ecchymosis , not distended, normoactive bowel sounds, no guarding, no rebound, No organomegaly. MUSCULOSKELETAL: Normal ROM at all joints. No bony deformities or tenderness. No CVA tenderness. UPPER EXTREMITIES: 2+ pulses, warm, well-perfused. No cyanosis. Cap refill <2 seconds. No peripheral edema. LOWER EXTREMITIES: 2+ pulses, warm, well-perfused. No calf tenderness. No peripheral edema. NEUROLOGICAL: Normal speech, gait not observed. PSYCH: Cooperative. Good eye contact. Appropriate mood and affect. SKIN: Warm, dry, normal turgor, no rashes or lesions noted. Vital Signs Temperature 100.1 F H 12/05/16 06:39 Pulse Rate 108 H 12/05/16 06:39 Respiratory Rate 20 12/05/16 06:39 Blood Pressure 147/92 12/05/16 06:39 O2 Sat by Pulse Oximetry (%) 93 L 12/04/16 21:00 12/04/16 12/05/16 06:15 06:20 WBC 12.0 H RBC 3.90 L Hgb 12.2 Hct 35.1 L MCV 89.9 MCHC 34.8 RDW 13.7 Plt Count 134 Neutrophils % 77.4 Lymphocytes % 8.9 Monocytes % 12.1 H Eosinophils % 1.3 D Basophils % 0.3 Sodium 138 Potassium 3.3 L Chloride 101 Carbon Dioxide 26 Anion Gap 11 BUN 6 L Creatinine 0.9 12/04/16 11:25 Blood Culture - Pending Blood - Peripheral Venous 12/04/16 09:35 Urine Culture - Pending Urine - Urine Clean Catch 12/04/16 09:45 Blood Culture - Pending Blood - Peripheral Venous Imaging reviewed; labs reviewed IMP: ETOH induced pancreatitis PLAN: Continue present tx; w/u and tx. to date is appropriate; will follow; no indication for surgical intervention at this time. Visit type - Case Type Case Type: ED Admission - Emergency Emergency Visit: Yes ED Registration Date: 12/02/16 Care time: The patient presented to the Emergency Department on the above date and was hospitalized for further evaluation of their emergent condition. - New patient This patient is new to me today: Yes Date on this admission: 12/05/16 - Critical Care Critical Care patient: No
[2016-12-05 08:39] LABS: ALK PHOS 54 U/L (45-117); CREATININE 0.8 mg/dL (0.7-1.3); SGOT/AST 18 U/L (15-37); SGPT/ALT 21 U/L (12-78); TOT PROT 5.5 g/dl (6.4-8.2)
[2016-12-05] MEDS: LIPASE/PROTEASE/AMYLASE 6,000 UNIT CAPSULE PO SCH ×3 (08:44→18:01)
[2016-12-05] MEDS ORDERED: PT OWN MED DRAWER 7, Y5N ONE ×2 (09:12→18:03)
[2016-12-05] MEDS: LABETALOL HCL 200 MG TABLET (FP) PO PRN (09:39)
[2016-12-05] MEDS: NICOTINE 21 MG/24 HOURS TOPICAL PATCH TD SCH (09:39)
[2016-12-05] MEDS: FOLIC ACID 1 MG TABLET (FP) PO SCH ×2 (10:13→14:28)
[2016-12-05] MEDS: THIAMINE HCL 100 MG TABLET (FP) PO SCH ×2 (10:13→14:28)
[2016-12-05] MEDS: MULTIVITAMINS (DAILY MVI) TABLET (FP) PO SCH ×2 (10:13→14:28)
[2016-12-05] MEDS: PANTOPRAZOLE 40 MG TABLET (FP) PO SCH ×2 (10:13→14:28)
--- NOTE | 2016-12-05 14:48 | PN ---
Progress Note (short form) - Note Progress Note: Renal Follow up for JOSH pt seen and examined at the bedside mild pain persists not taking in any oral foods no N/V no sob or chest pain s/p CT of the Abd yesterday Vital Signs Temperature 99.3 F 12/05/16 08:55 Pulse Rate 106 H 12/05/16 08:55 Respiratory Rate 18 12/05/16 08:55 Blood Pressure 158/95 12/05/16 08:55 O2 Sat by Pulse Oximetry (%) 96 12/05/16 09:35 Intake & Output 12/02/16 12/03/16 12/04/16 12/05/16 23:59 23:59 23:59 23:59 Intake Total 1750 5900 1398 1300 Output Total 1800 2200 800 Balance -50 3700 1398 500 Weight 236 lb 4 oz Gen: NAD, awake and alert CVS: RRR, No M/R Lungs: CTA, no rales or wheeze Abd: Soft + tenderness Ext: No edema, clubbing or cyanosis CBC, BMP 12/05/16 06:20 12/05/16 06:20 Current Medications Acetaminophen (Tylenol -) 650 mg PO Q6H PRN PRN Reason: FEVER OR PAIN Last Admin: 12/04/16 14:41 Dose: 650 mg Folic Acid (Folic Acid -) 1 mg PO DAILY RICARDO Last Admin: 12/05/16 14:28 Dose: 1 mg Heparin Sodium (Porcine) (Heparin -) 5,000 unit SQ TID RICARDO Last Admin: 12/05/16 14:28 Dose: 5,000 unit Imipenem/Cilastatin Sodium 1, (000 mg/ Sodium Chloride) 250 mls @ 250 mls/hr IVPB Q8H-IV RICARDO Last Admin: 12/05/16 10:12 Dose: 250 mls/hr Potassium Chloride/Sodium Chloride (1/2ns+20meq Kcl) 1,000 mls @ 125 mls/hr IV ASDIR RICARDO Last Admin: 12/05/16 12:35 Dose: 125 mls/hr Labetalol HCl (Normodyne -) 200 mg PO Q6H PRN PRN Reason: HYPERTENSION Last Admin: 12/05/16 09:39 Dose: 200 mg Lorazepam (Ativan Injection -) 1 mg IVPUSH Q2H PRN PRN Reason: ANXIETY Last Admin: 12/05/16 02:26 Dose: 1 mg Multivitamins/Minerals/Vitamin C (Tab-A-Vit -) 1 tab PO DAILY [facility] Last Admin: 12/05/16 14:28 Dose: 1 tab Nicotine (Nicoderm Patch -) 21 mg TD DAILY [facility] Last Admin: 12/05/16 09:39 Dose: 21 mg Ondansetron HCl (Zofran Injection) 4 mg IVPB Q4H PRN PRN Reason: NAUSEA AND/OR VOMITING Last Admin: 12/02/16 12:28 Dose: 4 mg Pancrelipase (Creon Dr 6,000 Units Capsule) 4 cap PO TIDCM [facility] Last Admin: 12/05/16 11:48 Dose: Not Given Pantoprazole Sodium (Protonix -) 40 mg PO DAILY [facility] Last Admin: 12/05/16 14:28 Dose: 40 mg Simethicone (Mylicon -) 80 mg PO QID PRN PRN Reason: GAS Last Admin: 12/03/16 10:16 Dose: 80 mg Thiamine HCl (Vitamin B1 -) 100 mg PO DAILY [facility] Last Admin: 12/05/16 14:28 Dose: 100 mg A/p 36 year old gentleman with PMhx of Peptic Ulcer disease, Choledolithiasis s/p cholecystecomy who presented with Abd pain and found to have acute alcoholic panreatitis with JOSH with BUN/Cr of 11/1.9. #Acute Kidney Injury secondary to volume depletion +/- NSAID use in setting fo acute pancreatitis Renal function stable Continue IVF as per GI s/p contrast exposure yesterday pt appears evolemic #Acute Alcoholic Pancreatitis/Fever Continue IVF, pain control GI following On Abx as per JUANY Pfeiffer DO
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
--- NOTE | 2016-12-05 16:05 | PN ---
Physical Exam: SUBJECTIVE: Patient seen and examined. He says he feel better than yesterday but worse than when he came in. Events: - Multiple loose stools OBJECTIVE: Vital Signs Period Temp Pulse Resp BP Sys/Malhotra Pulse Ox Last 24 Hr 98.3 F-100.1 F 101-128 18-20 147-158/92-97 93-96 PE Neuro: alert, awake, cn 2-12 intact Pulm: L base crackles, R clear CV: s1 s2 rrr no mrg Abd: abdominal tenderness improved soft, + bs Ext: Warm, no edema Laboratory Results - last 24 hr 12/05/16 12/05/16 06:20 06:20 WBC 12.0 H RBC 3.90 L Hgb 12.2 Hct 35.1 L MCV 89.9 MCHC 34.8 RDW 13.7 Plt Count 134 MPV 7.9 Neutrophils % 77.4 Lymphocytes % 8.9 Monocytes % 12.1 H Eosinophils % 1.3 D Basophils % 0.3 Sodium 134 L Potassium 3.5 Chloride 99 Carbon Dioxide 23 Anion Gap 12 BUN 6 L Creatinine 0.8 Creat Clearance w eGFR > 60 Random Glucose 74 Calcium 8.1 L Total Bilirubin 1.0 D AST 18 ALT 21 Alkaline Phosphatase 54 Total Protein 5.5 L Albumin 2.7 L Active Medications Generic Name Dose Route Start Last Admin Trade Name Conradq PRN Reason Stop Dose Admin Acetaminophen 650 mg 12/03/16 22:32 12/04/16 14:41 Tylenol - PO 650 mg Q6H PRN Administration FEVER OR PAIN Folic Acid 1 mg 12/02/16 12:00 12/05/16 14:28 Folic Acid - PO 1 mg DAILY RICARDO Administration Heparin Sodium (Porcine) 5,000 unit 12/02/16 22:00 12/05/16 14:28 Heparin - SQ 5,000 unit TID RICARDO Administration Imipenem/Cilastatin Sodium 1, 250 mls @ 250 mls/hr 12/04/16 19:00 12/05/16 10: 12 000 mg/ Sodium Chloride IVPB 250 mls/hr Q8H-IV RICARDO Administration Potassium Chloride/Sodium Chloride 1,000 mls @ 125 mls/hr 12/04/16 19:31 12:35 1/2ns+20meq Kcl IV 125 mls/hr ASDIR RICARDO Administration Labetalol HCl 200 mg 12/03/16 11:29 12/05/16 09:39 Normodyne - PO 200 mg Q6H PRN Administration HYPERTENSION Lorazepam 1 mg 12/02/16 02:09 12/05/16 02:26 Ativan Injection - IVPUSH 1 mg Q2H PRN Administration ANXIETY Multivitamins/Minerals/Vitamin C 1 tab 12/02/16 12:00 12/05/16 14:28 Tab-A-Vit - PO 1 tab DAILY RICARDO Administration Nicotine 21 mg 12/02/16 10:00 12/05/16 09:39 Nicoderm Patch - TD 21 mg DAILY RICARDO Administration Ondansetron HCl 4 mg 12/02/16 02:06 12/02/16 12:28 Zofran Injection IVPB 4 mg Q4H PRN Administration NAUSEA AND/OR VOMITING Pancrelipase 4 cap 12/04/16 19:30 12/05/16 11:[address] 6,000 Units Capsule PO Not Given TIDCM RICARDO Pantoprazole Sodium 40 mg 12/04/16 10:00 12/05/16 14:28 Protonix - PO 40 mg DAILY RICARDO Administration Simethicone 80 mg 12/02/16 18:23 12/03/16 10:16 Mylicon - PO 80 mg QID PRN Administration GAS Thiamine HCl 100 mg 12/02/16 12:00 12/05/16 14:28 Vitamin B1 - PO 100 mg DAILY RICARDO Administration Assessment: 36 year old male with hx of ETOH abuse, peptic ulcer disease admitted with abdominal pain found to have acute pancreatitis. Plan: 1. Persistent low grade fevers/Leukocytosis - Fevers improved - CTAP with increased phlegmonous changes - Urine and blood cx negative - Continue Imipenem (day 1) - Continue IVF - Monitor resp changes, BUN/cr - Appreciate ID consult 2. Acute pancreatitis d/t ETOH - See above - Pancrelipase 6000units TID - Clear liquids - GI seeing 3. Diarrhea - C diff and stool cx sent 4. ETOH abuse - Completed librium taper - Daily MVI, Thiamine, folic acid 5. HTN - Continue Labetalol 200mg q6h 6. JOSH - Resolved 7. Hx peptic ulcer - Protonix PO 8. Hypomagnesemia - Resolved 9. Active smoker - Daily nicotine patch 10. PPX DVT: Heparin TID Visit type - Emergency Visit Emergency Visit: Yes ED Registration Date: 12/02/16 Care time: The patient presented to the Emergency Department on the above date and was hospitalized for further evaluation of their emergent condition. - New Patient This patient is new to me today: No - Critical Care Critical Care patient: No
[2016-12-06] MEDS: IMIPENEM IVPB SCH ×3 (01:25→17:55)
[2016-12-06] MEDS: CILASTATIN SODIUM IVPB SCH ×3 (01:25→17:55)
[2016-12-06] MEDS: SODIUM CHLORIDE IVPB SCH ×3 (01:25→17:55)
[2016-12-06] MEDS: HEPARIN NA (PORCINE) 5,000 UNITS/ML 1ML VIAL SQ SCH ×3 (05:51→21:32)
[2016-12-06] MEDS: SODIUM CHLORIDE 0.45%/POT 1,000 ML IV SCH ×3 (05:52→16:16)
[2016-12-06 07:41] LABS: BASOPHIL 0.5 % (0-2.0); EOSINOPHIL 2.2 % (0-4.5); MCH 30.8 pg (25.7-33.7); MCHC 34.3 g/dl (32.0-35.9); MEAN PLT VOLUME 7.7 fl (7.5-11.1); NEUTROPHILS 68.5 % (42.8-82.8); PLATELET COUNT 159 K/MM3 (134-434); RDW 13.9 % (11.9-15.9); WHITE BLOOD COUNT 9.4 K/mm3 (4.0-10.0)
[2016-12-06 08:03] LABS: ALBUMIN 2.7 g/dl (3.4-5.0); ANION GAP 12 (8-16); CALCIUM 8.7 mg/dL (8.5-10.1); CO2 25 mmol/L (21-32); GLUCOSE,RANDOM 92 mg/dL (74-106)
[2016-12-06 08:07] LABS: ALK PHOS 55 U/L (45-117); BILIRUBIN,TOTAL 0.8 mg/dL (0.2-1.0); CREATININE 0.8 mg/dL (0.7-1.3); SGOT/AST 27 U/L (15-37); SGPT/ALT 24 U/L (12-78); TOT PROT 5.9 g/dl (6.4-8.2)
[2016-12-06] MEDS ORDERED: PT OWN MED DRAWER 7, Y5N ONE ×4 (08:09→17:51)
[2016-12-06] MEDS: LIPASE/PROTEASE/AMYLASE 6,000 UNIT CAPSULE PO SCH ×3 (08:16→17:55)
[2016-12-06] MEDS: LABETALOL HCL 200 MG TABLET (FP) PO PRN (08:17)
[2016-12-06] MEDS: MULTIVITAMINS (DAILY MVI) TABLET (FP) PO SCH (09:06)
[2016-12-06] MEDS: PANTOPRAZOLE 40 MG TABLET (FP) PO SCH (09:06)
[2016-12-06] MEDS: FOLIC ACID 1 MG TABLET (FP) PO SCH (09:06)
[2016-12-06] MEDS: THIAMINE HCL 100 MG TABLET (FP) PO SCH (09:07)
[2016-12-06] MEDS: NICOTINE 21 MG/24 HOURS TOPICAL PATCH TD SCH (09:09)
--- NOTE | 2016-12-06 13:41 | PN ---
Progress Note (short form) - Note Progress Note: Renal Follow up for JOSH pt seen and examined at the bedside abd pain is improved no N/V has loose stools Vital Signs Temperature 98.5 F 12/06/16 08:00 Pulse Rate 103 H 12/06/16 10:15 Respiratory Rate 24 12/06/16 08:00 Blood Pressure 125/77 12/06/16 10:15 O2 Sat by Pulse Oximetry (%) 96 12/06/16 09:00 Gen: NAD, awake and alert CVS: RRR, No M/R Lungs: CTA, no rales or wheeze Abd: Soft + tenderness Ext: No edema, clubbing or cyanosis CBC, BMP 12/06/16 06:15 12/06/16 06:15 Current Medications Acetaminophen (Tylenol -) 650 mg PO Q6H PRN PRN Reason: FEVER OR PAIN Last Admin: 12/04/16 14:41 Dose: 650 mg Folic Acid (Folic Acid -) 1 mg PO DAILY [facility] Last Admin: 12/06/16 09:06 Dose: 1 mg Heparin Sodium (Porcine) (Heparin -) 5,000 unit SQ TID RICARDO Last Admin: 12/06/16 05:51 Dose: 5,000 unit Imipenem/Cilastatin Sodium 1, (000 mg/ Sodium Chloride) 250 mls @ 250 mls/hr IVPB Q8H-IV RICARDO Last Admin: 12/06/16 11:11 Dose: 250 mls/hr Potassium Chloride/Sodium Chloride (1/2ns+20meq Kcl) 1,000 mls @ 125 mls/hr IV ASDIR RICARDO Last Admin: 12/06/16 05:52 Dose: 125 mls/hr Labetalol HCl (Normodyne -) 200 mg PO Q6H PRN PRN Reason: HYPERTENSION Last Admin: 12/06/16 08:17 Dose: 200 mg Lorazepam (Ativan Injection -) 1 mg IVPUSH Q2H PRN PRN Reason: ANXIETY Last Admin: 12/05/16 02:26 Dose: 1 mg Multivitamins/Minerals/Vitamin C (Tab-A-Vit -) 1 tab PO DAILY RICARDO Last Admin: 12/06/16 09:06 Dose: 1 tab Nicotine (Nicoderm Patch -) 21 mg TD DAILY [facility] Last Admin: 12/06/16 09:09 Dose: 21 mg Ondansetron HCl (Zofran Injection) 4 mg IVPB Q4H PRN PRN Reason: NAUSEA AND/OR VOMITING Last Admin: 12/02/16 12:28 Dose: 4 mg Pancrelipase (Creon Dr 6,000 Units Capsule) 4 cap PO TIDCM [facility] Last Admin: 12/06/16 12:10 Dose: 4 cap Pantoprazole Sodium (Protonix -) 40 mg PO DAILY [facility] Last Admin: 12/06/16 09:06 Dose: 40 mg Simethicone (Mylicon -) 80 mg PO QID PRN PRN Reason: GAS Last Admin: 12/03/16 10:16 Dose: 80 mg Thiamine HCl (Vitamin B1 -) 100 mg PO DAILY [facility] Last Admin: 12/06/16 09:07 Dose: 100 mg A/p 36 year old gentleman with PMhx of Peptic Ulcer disease, Choledolithiasis s/p cholecystecomy who presented with Abd pain and found to have acute alcoholic panreatitis with JOSH with BUN/Cr of 11/1.9. #Acute Kidney Injury secondary to volume depletion +/- NSAID use in setting fo acute pancreatitis Renal function improved and stable continue IVF as needed per GI recommendations #Acute Alcoholic Pancreatitis/Fever Continue IVF, pain control GI following On Abx as per ID Jayjay Pfeiffer DO
--- NOTE | 2016-12-06 14:50 | PN ---
Progress Note, Physician History of Present Illness: patients feels much better has remained afebrile says he feels much better - Current Medication List Current Medications: Active Medications Acetaminophen (Tylenol -) 650 mg PO Q6H PRN PRN Reason: FEVER OR PAIN Last Admin: 12/04/16 14:41 Dose: 650 mg Folic Acid (Folic Acid -) 1 mg PO DAILY [facility] Last Admin: 12/06/16 09:06 Dose: 1 mg Heparin Sodium (Porcine) (Heparin -) 5,000 unit SQ TID [facility] Last Admin: 12/06/16 05:51 Dose: 5,000 unit Imipenem/Cilastatin Sodium 1, (000 mg/ Sodium Chloride) 250 mls @ 250 mls/hr IVPB Q8H-IV RICARDO Last Admin: 12/06/16 11:11 Dose: 250 mls/hr Potassium Chloride/Sodium Chloride (1/2ns+20meq Kcl) 1,000 mls @ 125 mls/hr IV ASDIR [facility] Last Admin: 12/06/16 05:52 Dose: 125 mls/hr Labetalol HCl (Normodyne -) 200 mg PO Q6H PRN PRN Reason: HYPERTENSION Last Admin: 12/06/16 08:17 Dose: 200 mg Lorazepam (Ativan Injection -) 1 mg IVPUSH Q2H PRN PRN Reason: ANXIETY Last Admin: 12/05/16 02:26 Dose: 1 mg Multivitamins/Minerals/Vitamin C (Tab-A-Vit -) 1 tab PO DAILY [facility] Last Admin: 12/06/16 09:06 Dose: 1 tab Nicotine (Nicoderm Patch -) 21 mg TD DAILY [facility] Last Admin: 12/06/16 09:09 Dose: 21 mg Ondansetron HCl (Zofran Injection) 4 mg IVPB Q4H PRN PRN Reason: NAUSEA AND/OR VOMITING Last Admin: 12/02/16 12:28 Dose: 4 mg Pancrelipase (Creon Dr 6,000 Units Capsule) 4 cap PO TIDCM [facility] Last Admin: 12/06/16 12:10 Dose: 4 cap Pantoprazole Sodium (Protonix -) 40 mg PO DAILY [facility] Last Admin: 12/06/16 09:06 Dose: 40 mg Simethicone (Mylicon -) 80 mg PO QID PRN PRN Reason: GAS Last Admin: 12/03/16 10:16 Dose: 80 mg Thiamine HCl (Vitamin B1 -) 100 mg PO DAILY [facility]O Last Admin: 12/06/16 09:07 Dose: 100 mg - Objective Vital Signs: Vital Signs Temperature 98.5 F 12/06/16 08:00 Pulse Rate 103 H 12/06/16 10:15 Respiratory Rate 24 12/06/16 08:00 Blood Pressure 125/77 12/06/16 10:15 O2 Sat by Pulse Oximetry (%) 96 12/06/16 09:00 Constitutional: Yes: No Distress, Calm Neck: Yes: Supple Cardiovascular: Yes: Regular Rate and Rhythm Respiratory: Yes: Regular, CTA Bilaterally Gastrointestinal: Yes: Normal Bowel Sounds, Soft Musculoskeletal: Yes: WNL Extremities: Yes: WNL Neurological: Yes: Alert, Oriented Psychiatric: Yes: Alert Labs: CBC, BMP 12/06/16 06:15 12/06/16 06:15 Assessment/Plan ac pancreatitis h/o of peptic ulcer dehydration sepsis due to pancreatitis fever leukocytosis etoh abuse pancreatic phlegmon plan continue abx repeat ct scan on friday once patient stable and know which way we are going will stop abx continue nutritional support normal wbc now
--- NOTE | 2016-12-06 15:36 | PN ---
Physical Exam: SUBJECTIVE: Patient seen and examined at bedside. Feeling better but depressed about his addiction to alcohol. OBJECTIVE: Vital Signs Period Temp Pulse Resp BP Sys/Malhotra Pulse Ox Last 24 Hr 98.4 F-99.4 F 93-106 18-24 125-154/77-108 96-97 GENERAL: The patient is awake, alert, and fully oriented, in no acute distress. HEAD: Normal with no signs of trauma. EYES: PERRL, extraocular movements intact, sclera anicteric, conjunctiva clear. No ptosis. LUNGS: Breath sounds equal, clear to auscultation bilaterally, no wheezes, no crackles, no accessory muscle use. HEART: Regular rate and rhythm, S1, S2 without murmur, rub or gallop. ABDOMEN: Soft, nontender, nondistended, normoactive bowel sounds, no guarding, no rebound EXTREMITIES: 2+ pulses, warm, well-perfused, no edema. NEUROLOGICAL: Cranial nerves II through XII grossly intact. Normal speech, gait not observed. PSYCH: Depressed. Laboratory Results - last 24 hr 12/06/16 12/06/16 12/06/16 06:15 06:15 06:15 WBC 9.4 RBC 3.85 L Hgb 11.9 Hct 34.7 L MCV 90.0 MCHC 34.3 RDW 13.9 Plt Count 159 MPV 7.7 Neutrophils % 68.5 Lymphocytes % 12.8 D Monocytes % 16.0 H Eosinophils % 2.2 Basophils % 0.5 Sodium 138 Potassium 3.8 Chloride 101 Carbon Dioxide 25 Anion Gap 12 BUN 5 L Creatinine 0.8 Creat Clearance w eGFR > 60 Random Glucose 92 D Calcium 8.7 Magnesium Cancelled Total Bilirubin 0.8 AST 27 D ALT 24 Alkaline Phosphatase 55 Total Protein 5.9 L Albumin 2.7 L Lipase 769 H Active Medications Generic Name Dose Route Start Last Admin Trade Name Freq PRN Reason Stop Dose Admin Acetaminophen 650 mg 12/03/16 22:32 12/04/16 14:41 Tylenol - PO 650 mg Q6H PRN Administration FEVER OR PAIN Folic Acid 1 mg 12/02/16 12:00 12/06/16 09:06 Folic Acid - PO 1 mg DAILY RICARDO Administration Heparin Sodium (Porcine) 5,000 unit 12/02/16 22:00 12/06/16 05:51 Heparin - SQ 5,000 unit TID RIC[facility]O Administration Imipenem/Cilastatin Sodium 1, 250 mls @ 250 mls/hr 12/04/16 19:00 12/06/16 11: 11 000 mg/ Sodium Chloride IVPB 250 mls/hr Q8H-IV RIC[facility]O Administration Potassium Chloride/Sodium Chloride 1,000 mls @ 125 mls/hr 12/04/16 19:31 14:53 1/2ns+20meq Kcl IV 125 mls/hr ASDIR RIC[facility]O Administration Labetalol HCl 200 mg 12/03/16 11:29 12/06/16 08:17 Normodyne - PO 200 mg Q6H PRN Administration HYPERTENSION Lorazepam 1 mg 12/02/16 02:09 12/05/16 02:26 Ativan Injection - IVPUSH 1 mg Q2H PRN Administration ANXIETY Multivitamins/Minerals/Vitamin C 1 tab 12/02/16 12:00 12/06/16 09:06 Tab-A-Vit - PO 1 tab DAILY [facility]O Administration Nicotine 21 mg 12/02/16 10:00 12/06/16 09:09 Nicoderm Patch - TD 21 mg DAILY R[facility]O Administration Ondansetron HCl 4 mg 12/02/16 02:06 12/02/16 12:28 Zofran Injection IVPB 4 mg Q4H PRN Administration NAUSEA AND/OR VOMITING Pancrelipase 4 cap 12/04/16 19:30 12/06/16 12:[address] 6,000 Units Capsule PO 4 cap TIDCM R[facility]O Administration Pantoprazole Sodium 40 mg 12/04/16 10:00 12/06/16 09:06 Protonix - PO 40 mg DAILY RIC[facility]O Administration Simethicone 80 mg 12/02/16 18:23 12/03/16 10:16 Mylicon - PO 80 mg QID PRN Administration GAS Thiamine HCl 100 mg 12/02/16 12:00 12/06/16 09:07 Vitamin B1 - PO 100 mg DAILY [facility] Administration ASSESSMENT/PLAN 36 year-old male with PMH of ETOH abuse and PUD, admitted for acute pancreatitis. Severe sepsis due to acute alcohol pancreatitis, improved --afebrile, WBC wnl, cultures negative --continue imipenem (day #3); will repeat CTAP on Friday to see progression of phlegmon; keep on IV abx until CTAP is done --continue IV fluids, clears diet --diarrhea has improved with pancrelipase; C.diff negative --monitor Ca and Mg closely ETOH abuse --no s/s of withdrawal --continue thiamine, folic acid --spoke with SW, will try to get into program at [facility] which patient attended in 2010 and maintained sobriety for 1 year Hypertension --repeated elevated readings --start lisinopril 10mg daily JOSH, resolved PUD --continue protonix Tobacco dependence --nicoderm patch F/E/N Fluids: 1/2NS+20K @ 125mL/hr Electrolytes: replete as indicated Nutrition: cholesterol/fat controlled DVT prophylaxis: subq heparin, oob, ambulation Dispo: continues to require inpatient care. Full Code. Patient interested in alcohol rehab. Visit type - Emergency Visit Emergency Visit: Yes ED Registration Date: 12/02/16 Care time: The patient presented to the Emergency Department on the above date and was hospitalized for further evaluation of their emergent condition. - New Patient This patient is new to me today: Yes Date on this admission: 12/06/16 - Critical Care Critical Care patient: No
--- NOTE | 2016-12-06 16:02 | PN ---
GI Progress Note Subjective: Resting-comfortable. Diarrhea has resolved with Creon - Objective Vital Signs: Vital Signs Temperature 99.4 F 12/06/16 14:00 Pulse Rate 93 H 12/06/16 14:00 Respiratory Rate 20 12/06/16 14:00 Blood Pressure 154/88 12/06/16 14:00 O2 Sat by Pulse Oximetry (%) 96 12/06/16 09:00 Constitutional: Well Nourished, Calm HENT: Yes: Normocephalic Neck: Yes: Supple Cardiovascular: Yes: Regular Rate and Rhythm Respiratory: Yes: CTA Bilaterally ...Auscultate: Yes: Normoactive Bowel Sounds ...Palpate: Yes: Soft. No: Tenderness Labs: CBC, BMP 12/06/16 06:15 12/06/16 06:15 Abnormal Lab Results 12/06/16 12/06/16 06:15 06:15 RBC 3.85 L Hct 34.7 L Monocytes % 16.0 H BUN 5 L Total Protein 5.9 L Albumin 2.7 L Lipase 769 H Assessment/Plan Pancreatitis continues to resolve. No leukocytosis No fever Plan: Advance diet Decrease IVF If OKwith ID, change Ab to po, as the leukocytosis and fever were likely manifestations of the pancreatitis, not infection. All cultures negative. CT Friday and if no significant problem and diet is tolerated, can d/c
[2016-12-06] MEDS: LISINOPRIL 10 MG TABLET (FP) PO SCH (17:55)
[2016-12-07] MEDS: IMIPENEM IVPB SCH ×3 (01:26→18:34)
[2016-12-07] MEDS: CILASTATIN SODIUM IVPB SCH ×3 (01:26→18:34)
[2016-12-07] MEDS: SODIUM CHLORIDE IVPB SCH ×3 (01:26→18:34)
[2016-12-07] MEDS: HEPARIN NA (PORCINE) 5,000 UNITS/ML 1ML VIAL SQ SCH ×3 (06:23→21:06)
[2016-12-07] MEDS ORDERED: PT OWN MED DRAWER 7, Y5N ONE ×2 (08:56→18:37)
[2016-12-07] MEDS: LIPASE/PROTEASE/AMYLASE 6,000 UNIT CAPSULE PO SCH ×3 (09:00→18:07)
[2016-12-07] MEDS: PANTOPRAZOLE 40 MG TABLET (FP) PO SCH (09:36)
[2016-12-07] MEDS: FOLIC ACID 1 MG TABLET (FP) PO SCH (09:36)
[2016-12-07] MEDS: LISINOPRIL 10 MG TABLET (FP) PO SCH (09:36)
[2016-12-07] MEDS: MULTIVITAMINS (DAILY MVI) TABLET (FP) PO SCH (09:36)
[2016-12-07] MEDS: NICOTINE 21 MG/24 HOURS TOPICAL PATCH TD SCH (09:36)
[2016-12-07] MEDS: THIAMINE HCL 100 MG TABLET (FP) PO SCH (09:36)
[2016-12-07] MEDS: SODIUM CHLORIDE 0.45%/POT 1,000 ML IV SCH ×4 (10:13→18:09)
[2016-12-07 11:22] LABS: BASOPHIL 0.4 % (0-2.0); EOSINOPHIL 1.8 % (0-4.5); MCH 30.6 pg (25.7-33.7); MCHC 34.2 g/dl (32.0-35.9); MEAN CELL VOLUME 89.6 fl (80-96); MEAN PLT VOLUME 7.4 fl (7.5-11.1); NEUTROPHILS 72.2 % (42.8-82.8); PLATELET COUNT 208 K/MM3 (134-434); RDW 13.8 % (11.9-15.9); WHITE BLOOD COUNT 9.9 K/mm3 (4.0-10.0)
[2016-12-07 11:55] LABS: ALBUMIN 2.6 g/dl (3.4-5.0); ANION GAP 8 (8-16); BILIRUBIN,TOTAL 0.5 mg/dL (0.2-1.0); CALCIUM 9.1 mg/dL (8.5-10.1); CO2 28 mmol/L (21-32); CREATININE 0.8 mg/dL (0.7-1.3); GLUCOSE,RANDOM 131 mg/dL (74-106); SGOT/AST 42 U/L (15-37); SGPT/ALT 37 U/L (12-78); TOT PROT 5.9 g/dl (6.4-8.2)
[2016-12-07 11:56] LABS: ALK PHOS 75 U/L (45-117)
--- NOTE | 2016-12-07 12:27 | PN ---
Progress Note (short form) - Note Progress Note: Renal Follow up for JOSH no overnight events Vital Signs Temperature 99.9 F H 12/07/16 06:24 Pulse Rate 100 H 12/07/16 06:24 Respiratory Rate 20 12/07/16 06:24 Blood Pressure 142/92 12/07/16 06:24 O2 Sat by Pulse Oximetry (%) 96 12/06/16 21:00 Gen: NAD, awake and alert CVS: RRR, No M/R Lungs: CTA, no rales or wheeze Ext: No edema, clubbing or cyanosis CBC, BMP 12/07/16 10:55 12/07/16 10:55 Current Medications Acetaminophen (Tylenol -) 650 mg PO Q6H PRN PRN Reason: FEVER OR PAIN Last Admin: 12/04/16 14:41 Dose: 650 mg Folic Acid (Folic Acid -) 1 mg PO DAILY [facility] Last Admin: 12/07/16 09:36 Dose: 1 mg Heparin Sodium (Porcine) (Heparin -) 5,000 unit SQ TID [facility] Last Admin: 12/07/16 06:23 Dose: 5,000 unit Imipenem/Cilastatin Sodium 1, (000 mg/ Sodium Chloride) 250 mls @ 250 mls/hr IVPB Q8H-IV [facility] Last Admin: 12/07/16 01:26 Dose: 250 mls/hr Potassium Chloride/Sodium Chloride (1/2ns+20meq Kcl) 1,000 mls @ 75 mls/hr IV ASDIR [facility] Last Admin: 12/07/16 10:13 Dose: 75 mls/hr Labetalol HCl (Normodyne -) 200 mg PO Q6H PRN PRN Reason: HYPERTENSION Last Admin: 12/06/16 08:17 Dose: 200 mg Lisinopril (Prinivil) 10 mg PO DAILY [facility] Last Admin: 12/07/16 09:36 Dose: 10 mg Lorazepam (Ativan Injection -) 1 mg IVPUSH Q2H PRN PRN Reason: ANXIETY Last Admin: 12/05/16 02:26 Dose: 1 mg Multivitamins/Minerals/Vitamin C (Tab-A-Vit -) 1 tab PO DAILY [facility] Last Admin: 12/07/16 09:36 Dose: 1 tab Nicotine (Nicoderm Patch -) 21 mg TD DAILY [facility] Last Admin: 12/07/16 09:36 Dose: 21 mg Ondansetron HCl (Zofran Injection) 4 mg IVPB Q4H PRN PRN Reason: NAUSEA AND/OR VOMITING Last Admin: 12/02/16 12:28 Dose: 4 mg Pancrelipase (Creon Dr 6,000 Units Capsule) 4 cap PO TIDCM [facility] Last Admin: 12/07/16 09:00 Dose: 4 cap Pantoprazole Sodium (Protonix -) 40 mg PO DAILY [facility] Last Admin: 12/07/16 09:36 Dose: 40 mg Simethicone (Mylicon -) 80 mg PO QID PRN PRN Reason: GAS Last Admin: 12/03/16 10:16 Dose: 80 mg Thiamine HCl (Vitamin B1 -) 100 mg PO DAILY [facility] Last Admin: 12/07/16 09:36 Dose: 100 mg A/p 36 year old gentleman with PMhx of Peptic Ulcer disease, Choledolithiasis s/p cholecystecomy who presented with Abd pain and found to have acute alcoholic panreatitis with JOSH with BUN/Cr of 11/1.9. #Acute Kidney Injury secondary to volume depletion +/- NSAID use in setting fo acute pancreatitis Renal function at baseline started on Lisinopril for hypertension off IVF, tolerated oral intake #Acute Alcoholic Pancreatitis/Fever Continue IVF, pain control GI following On Abx as per ID Renal function improved and stable. Will sign off case at this time. Please call with any questions or concerns Jayjay Pfeiffer DO
--- NOTE | 2016-12-07 12:37 | PN ---
Physical Exam: SUBJECTIVE: Patient seen and examined OBJECTIVE: Vital Signs Period Temp Pulse Resp BP Sys/Malhotra Pulse Ox Last 24 Hr 99.4 F-99.9 F 93-100 18-20 132-154/82-92 96 GENERAL: The patient is awake, alert, and fully oriented, in no acute distress. HEAD: Normal with no signs of trauma. EYES: PERRL, extraocular movements intact, sclera anicteric, conjunctiva clear. No ptosis. LUNGS: Breath sounds equal, clear to auscultation bilaterally, no wheezes, no crackles, no accessory muscle use. HEART: Regular rate and rhythm, S1, S2 without murmur, rub or gallop. ABDOMEN: Soft, nontender, nondistended, normoactive bowel sounds, no guarding, no rebound EXTREMITIES: 2+ pulses, warm, well-perfused, no edema. NEUROLOGICAL: Cranial nerves II through XII grossly intact. Normal speech, gait not observed. PSYCH: Depressed. Laboratory Results - last 24 hr 12/06/16 12/07/16 12/07/16 06:15 10:55 10:55 WBC 9.9 RBC 3.78 L Hgb 11.6 L Hct 33.9 L MCV 89.6 MCHC 34.2 RDW 13.8 Plt Count 208 D MPV 7.4 L Neutrophils % 72.2 Lymphocytes % 9.7 D Monocytes % 15.9 H Eosinophils % 1.8 Basophils % 0.4 Sodium 138 Potassium 3.8 Chloride 102 Carbon Dioxide 28 Anion Gap 8 BUN 5 L Creatinine 0.8 Creat Clearance w eGFR > 60 Random Glucose 131 H D Calcium 9.1 Magnesium 2.0 2.0 Total Bilirubin 0.5 D AST 42 H D ALT 37 D Alkaline Phosphatase 75 D Total Protein 5.9 L Albumin 2.6 L Active Medications Generic Name Dose Route Start Last Admin Trade Name Freq PRN Reason Stop Dose Admin Acetaminophen 650 mg 12/03/16 22:32 12/04/16 14:41 Tylenol - PO 650 mg Q6H PRN Administration FEVER OR PAIN Folic Acid 1 mg 12/02/16 12:00 12/07/16 09:36 Folic Acid - PO 1 mg DAILY RICARDO Administration Heparin Sodium (Porcine) 5,000 unit 12/02/16 22:00 12/07/16 06:23 Heparin - SQ 5,000 unit TID RICARDO Administration Imipenem/Cilastatin Sodium 1, 250 mls @ 250 mls/hr 12/04/16 19:00 12/07/16 12: 31 000 mg/ Sodium Chloride IVPB 250 mls/hr Q8H-IV RICARDO Administration Potassium Chloride/Sodium Chloride 1,000 mls @ 75 mls/hr 12/06/16 16:05 10:13 1/2ns+20meq Kcl IV 75 mls/hr ASDIR RICARDO Administration Labetalol HCl 200 mg 12/03/16 11:29 12/06/16 08:17 Normodyne - PO 200 mg Q6H PRN Administration HYPERTENSION Lisinopril 10 mg 12/06/16 17:30 12/07/16 09:36 Prinivil PO 10 mg DAILY RICARDO Administration Lorazepam 1 mg 12/02/16 02:09 12/05/16 02:26 Ativan Injection - IVPUSH 1 mg Q2H PRN Administration ANXIETY Multivitamins/Minerals/Vitamin C 1 tab 12/02/16 12:00 12/07/16 09:36 Tab-A-Vit - PO 1 tab DAILY RICARDO Administration Nicotine 21 mg 12/02/16 10:00 12/07/16 09:36 Nicoderm Patch - TD 21 mg DAILY RICARDO Administration Ondansetron HCl 4 mg 12/02/16 02:06 12/02/16 12:28 Zofran Injection IVPB 4 mg Q4H PRN Administration NAUSEA AND/OR VOMITING Pancrelipase 4 cap 12/04/16 19:30 12/07/16 12:[address] 6,000 Units Capsule PO 4 cap TIDCM RICARDO Administration Pantoprazole Sodium 40 mg 12/04/16 10:00 12/07/16 09:36 Protonix - PO 40 mg DAILY RICARDO Administration Simethicone 80 mg 12/02/16 18:23 12/03/16 10:16 Mylicon - PO 80 mg QID PRN Administration GAS Thiamine HCl 100 mg 12/02/16 12:00 12/07/16 09:36 Vitamin B1 - PO 100 mg DAILY RICARDO Administration ASSESSMENT/PLAN 36 year-old male with PMH of ETOH abuse and PUD, admitted for acute pancreatitis. Severe sepsis due to acute alcohol pancreatitis, improved --afebrile, WBC wnl, cultures negative --continue imipenem (day #4); will repeat CTAP tomorrow; keep on IV abx until CTAP is done --continue IV fluids, clears diet --diarrhea has improved with pancrelipase; C.diff negative --monitor Ca and Mg closely ETOH abuse --no s/s of withdrawal --continue thiamine, folic acid --spoke with SW, will try to get into program at [facility] which patient attended in 2010 and maintained sobriety for 1 year Hypertension --repeated elevated readings --continue lisinopril 10mg daily JOSH, resolved --received contrast load on 12/[address] with contrast --continue IV fluids now and continue for 12 hours after next dye load PUD --continue protonix Tobacco dependence --nicoderm patch F/E/N Fluids: 1/2NS+20K @ 125mL/hr Electrolytes: replete as indicated Nutrition: cholesterol/fat controlled DVT prophylaxis: subq heparin, oob, ambulation Dispo: continues to require inpatient care. Full Code. Patient interested in alcohol rehab. Visit type - Emergency Visit Emergency Visit: Yes ED Registration Date: 12/02/16 Care time: The patient presented to the Emergency Department on the above date and was hospitalized for further evaluation of their emergent condition. - New Patient This patient is new to me today: No - Critical Care Critical Care patient: No
--- NOTE | 2016-12-07 16:27 | PN ---
Progress Note, Physician History of Present Illness: patients feels much better has remained afebrile says he feels much better going for ct scan today - Current Medication List Current Medications: Active Medications Acetaminophen (Tylenol -) 650 mg PO Q6H PRN PRN Reason: FEVER OR PAIN Last Admin: 12/04/16 14:41 Dose: 650 mg Folic Acid (Folic Acid -) 1 mg PO DAILY [facility] Last Admin: 12/07/16 09:36 Dose: 1 mg Heparin Sodium (Porcine) (Heparin -) 5,000 unit SQ TID [facility] Last Admin: 12/07/16 14:44 Dose: 5,000 unit Imipenem/Cilastatin Sodium 1, (000 mg/ Sodium Chloride) 250 mls @ 250 mls/hr IVPB Q8H-IV [facility] Last Admin: 12/07/16 12:31 Dose: 250 mls/hr Potassium Chloride/Sodium Chloride (1/2ns+20meq Kcl) 1,000 mls @ 75 mls/hr IV ASDIR [facility] Last Admin: 12/07/16 10:13 Dose: 75 mls/hr Labetalol HCl (Normodyne -) 200 mg PO Q6H PRN PRN Reason: HYPERTENSION Last Admin: 12/06/16 08:17 Dose: 200 mg Lisinopril (Prinivil) 10 mg PO DAILY [facility] Last Admin: 12/07/16 09:36 Dose: 10 mg Lorazepam (Ativan Injection -) 1 mg IVPUSH Q2H PRN PRN Reason: ANXIETY Last Admin: 12/05/16 02:26 Dose: 1 mg Multivitamins/Minerals/Vitamin C (Tab-A-Vit -) 1 tab PO DAILY [facility] Last Admin: 12/07/16 09:36 Dose: 1 tab Nicotine (Nicoderm Patch -) 21 mg TD DAILY [facility] Last Admin: 12/07/16 09:36 Dose: 21 mg Ondansetron HCl (Zofran Injection) 4 mg IVPB Q4H PRN PRN Reason: NAUSEA AND/OR VOMITING Last Admin: 12/02/16 12:28 Dose: 4 mg Pancrelipase (Creon Dr 6,000 Units Capsule) 4 cap PO TIDCM [facility] Last Admin: 12/07/16 12:31 Dose: 4 cap Pantoprazole Sodium (Protonix -) 40 mg PO DAILY [facility] Last Admin: 12/07/16 09:36 Dose: 40 mg Simethicone (Mylicon -) 80 mg PO QID PRN PRN Reason: GAS Last Admin: 12/03/16 10:16 Dose: 80 mg Thiamine HCl (Vitamin B1 -) 100 mg PO DAILY [facility] Last Admin: 12/07/16 09:36 Dose: 100 mg - Objective Vital Signs: Vital Signs Temperature 99.8 F H 12/07/16 15:16 Pulse Rate 103 H 12/07/16 15:16 Respiratory Rate 18 12/07/16 15:21 Blood Pressure 147/92 12/07/16 15:16 O2 Sat by Pulse Oximetry (%) 96 12/07/16 15:21 Constitutional: Yes: No Distress, Calm Cardiovascular: Yes: Regular Rate and Rhythm Respiratory: Yes: Regular, CTA Bilaterally Gastrointestinal: Yes: Normal Bowel Sounds, Soft Integumentary: Yes: WNL Neurological: Yes: Alert, Oriented Psychiatric: Yes: Alert Labs: CBC, BMP 12/07/16 10:55 12/07/16 10:55 Assessment/Plan ac pancreatitis h/o of peptic ulcer dehydration sepsis due to pancreatitis fever leukocytosis etoh abuse pancreatic phlegmon plan continue abx for now will see whaT CT SCAN SHOWS if ct scan shows resolving we will switch to or might stop abx depending on ct result rest ct current mgmt
[2016-12-08] MEDS: SODIUM CHLORIDE IVPB SCH ×2 (01:15→11:48)
[2016-12-08] MEDS: CILASTATIN SODIUM IVPB SCH ×2 (01:15→11:48)
[2016-12-08] MEDS: IMIPENEM IVPB SCH ×2 (01:15→11:48)
[2016-12-08] MEDS: SODIUM CHLORIDE 0.45%/POT 1,000 ML IV SCH (04:01)
[2016-12-08] MEDS: ONDANSETRON 4 MG/2 ML VIAL IVPB PRN (04:01)
[2016-12-08] MEDS: HEPARIN NA (PORCINE) 5,000 UNITS/ML 1ML VIAL SQ SCH ×3 (05:50→21:55)
[2016-12-08] MEDS ORDERED: PT OWN MED DRAWER 7, Y5N ONE ×3 (08:22→19:33)
[2016-12-08] MEDS: LIPASE/PROTEASE/AMYLASE 6,000 UNIT CAPSULE PO SCH ×3 (08:24→18:08)
[2016-12-08] MEDS: FOLIC ACID 1 MG TABLET (FP) PO SCH (09:15)
[2016-12-08] MEDS: THIAMINE HCL 100 MG TABLET (FP) PO SCH (09:15)
[2016-12-08] MEDS: NICOTINE 21 MG/24 HOURS TOPICAL PATCH TD SCH (09:15)
[2016-12-08] MEDS: LISINOPRIL 10 MG TABLET (FP) PO SCH (09:15)
[2016-12-08] MEDS: PANTOPRAZOLE 40 MG TABLET (FP) PO SCH (09:15)
[2016-12-08] MEDS: MULTIVITAMINS (DAILY MVI) TABLET (FP) PO SCH (09:15)
--- NOTE | 2016-12-08 10:53 | PN ---
Physical Exam: SUBJECTIVE: Patient seen and examined. Has been eating low fat/low choleterol diet but has had two episodes of vomiting over past 24 hours. OBJECTIVE: Vital Signs Period Temp Pulse Resp BP Sys/Malhotra Pulse Ox Last 24 Hr 98.6 F-99.9 F 93-105 18-20 144-150/90-93 96-97 GENERAL: The patient is awake, alert, and fully oriented, in no acute distress. HEAD: Normal with no signs of trauma. EYES: PERRL, extraocular movements intact, sclera anicteric, conjunctiva clear. No ptosis. LUNGS: Breath sounds equal, clear to auscultation bilaterally, no wheezes, no crackles, no accessory muscle use. HEART: Regular rate and rhythm, S1, S2 without murmur, rub or gallop. ABDOMEN: Soft, nontender, nondistended, normoactive bowel sounds, no guarding, no rebound EXTREMITIES: 2+ pulses, warm, well-perfused, no edema. NEUROLOGICAL: Cranial nerves II through XII grossly intact. Normal speech, gait not observed. PSYCH: Depressed affect. Laboratory Results - last 24 hr 12/07/16 12/07/16 10:55 10:55 WBC 9.9 RBC 3.78 L Hgb 11.6 L Hct 33.9 L MCV 89.6 MCHC 34.2 RDW 13.8 Plt Count 208 D MPV 7.4 L Neutrophils % 72.2 Lymphocytes % 9.7 D Monocytes % 15.9 H Eosinophils % 1.8 Basophils % 0.4 Sodium 138 Potassium 3.8 Chloride 102 Carbon Dioxide 28 Anion Gap 8 BUN 5 L Creatinine 0.8 Creat Clearance w eGFR > 60 Random Glucose 131 H D Calcium 9.1 Magnesium 2.0 Total Bilirubin 0.5 D AST 42 H D ALT 37 D Alkaline Phosphatase 75 D Total Protein 5.9 L Albumin 2.6 L Active Medications Generic Name Dose Route Start Last Admin Trade Name Freq PRN Reason Stop Dose Admin Acetaminophen 650 mg 12/03/16 22:32 12/04/16 14:41 Tylenol - PO 650 mg Q6H PRN Administration FEVER OR PAIN Folic Acid 1 mg 12/02/16 12:00 12/08/16 09:15 Folic Acid - PO 1 mg DAILY [facility] Administration Heparin Sodium (Porcine) 5,000 unit 12/02/16 22:00 12/08/16 05:50 Heparin - SQ 5,000 unit TID RICARDO Administration Imipenem/Cilastatin Sodium 1, 250 mls @ 250 mls/hr 12/04/16 19:00 12/08/16 01: 15 000 mg/ Sodium Chloride IVPB 250 mls/hr Q8H-IV [facility]O Administration Potassium Chloride/Sodium Chloride 1,000 mls @ 75 mls/hr 12/06/16 16:05 04:01 1/2ns+20meq Kcl IV 75 mls/hr ASDIR [facility]O Administration Labetalol HCl 200 mg 12/03/16 11:29 12/06/16 08:17 Normodyne - PO 200 mg Q6H PRN Administration HYPERTENSION Lorazepam 1 mg 12/02/16 02:09 12/05/16 02:26 Ativan Injection - IVPUSH 1 mg Q2H PRN Administration ANXIETY Multivitamins/Minerals/Vitamin C 1 tab 12/02/16 12:00 12/08/16 09:15 Tab-A-Vit - PO 1 tab DAILY [facility] Administration Nicotine 21 mg 12/02/16 10:00 12/08/16 09:15 Nicoderm Patch - TD 21 mg DAILY [facility] Administration Ondansetron HCl 4 mg 12/02/16 02:06 12/08/16 04:01 Zofran Injection IVPB 4 mg Q4H PRN Administration NAUSEA AND/OR VOMITING Pancrelipase 4 cap 12/04/16 19:30 12/08/16 08:[address] 6,000 Units Capsule PO 4 cap TIDCM RICARDO Administration Pantoprazole Sodium 40 mg 12/04/16 10:00 12/08/16 09:15 Protonix - PO 40 mg DAILY [facility] Administration Simethicone 80 mg 12/02/16 18:23 12/03/16 10:16 Mylicon - PO 80 mg QID PRN Administration GAS Thiamine HCl 100 mg 12/02/16 12:00 12/08/16 09:15 Vitamin B1 - PO 100 mg DAILY [facility] Administration ASSESSMENT/PLAN 36 year-old male with PMH of ETOH abuse and PUD, admitted for acute pancreatitis. Severe sepsis due to acute alcohol pancreatitis; sepsis has resolved --afebrile, WBC wnl, cultures negative --CTAP yesterday (1) bilateral pleural effusions L>R; (2) extensive peripancreatic stranding and phlegmonous fluid; (3) inferior to pancreas 9 x 5 x 6.5 cm fluid collection; likely an evolving pseudocyst --anticipate transition to PO antibiotics today as there is no abscess or necrosis; received imipenem x 5 days --not tolerating diet; de-escalate diet to full liquids, cholesterol and fat controlled, low sodium --diarrhea has resolved with pancrelipase ETOH abuse --no s/s of withdrawal --continue thiamine, folic acid --spoke with SW, will try to get into program at [facility] which patient attended in 2010 and maintained sobriety for 1 year Hypertension --BP remains elevated on lisinopril 10mg, increase to 20mg, put on sodium- restricted diet JOSH, resolved --contrast loads on 12/04 and 12/07; was fluid resuscitated before and after each procedure --renal function stable, continue to monitor PUD --continue protonix Tobacco dependence --nicoderm patch F/E/N Fluids: PO intake adequate Electrolytes: replete as indicated Nutrition: full liquids, cholesterol and fat controlled, low sodium DVT prophylaxis: subq heparin, oob, ambulation Dispo: continues to require inpatient care. Needs to tolerate PO before discharge. Patient expressed interest in alcohol rehab. Full Code. Visit type - Emergency Visit Emergency Visit: Yes ED Registration Date: 12/02/16 Care time: The patient presented to the Emergency Department on the above date and was hospitalized for further evaluation of their emergent condition. - New Patient This patient is new to me today: No - Critical Care Critical Care patient: No
--- NOTE | 2016-12-08 12:11 | PN ---
GI Progress Note Subjective: Comfortable. No pain. Taking po without difficulty. Low-grade fever, likely related to pancreatic inflammation. - Objective Vital Signs: Vital Signs Temperature 99.4 F 12/08/16 10:00 Pulse Rate 100 H 12/08/16 10:00 Respiratory Rate 18 12/08/16 10:00 Blood Pressure 148/93 12/08/16 10:00 O2 Sat by Pulse Oximetry (%) 97 12/08/16 09:00 Constitutional: Well Nourished, No Distress, Calm HENT: Yes: Normocephalic Neck: Yes: Supple Cardiovascular: Yes: Regular Rate and Rhythm Respiratory: Yes: CTA Bilaterally Gastrointestinal Inspection: Yes: WNL ...Auscultate: Yes: Normoactive Bowel Sounds ...Palpate: Yes: Soft. No: Tenderness ...Percussion: Yes: Tympanitic Labs: CBC, BMP 12/07/16 10:55 12/07/16 10:55 - ....Imaging Cat Scan: Report Reviewed (Phlegmonous pancreatic lesion with what appears to be early pseudocyst formation. The phlegmoon seems to be organizing and there is no evidence of abscess or necrosis) Assessment/Plan Pancreatitis continues to resolve. No leukocytosis and only low grade fever Plan: D/C IVF If OK with ID, change Ab to po All cultures negative. Consider discharge if clinically well
--- NOTE | 2016-12-08 15:04 | PN ---
Progress Note, Physician History of Present Illness: patient doing well had some nausea low grade temp - Current Medication List Current Medications: Active Medications Folic Acid (Folic Acid -) 1 mg PO DAILY [facility] Last Admin: 12/08/16 09:15 Dose: 1 mg Heparin Sodium (Porcine) (Heparin -) 5,000 unit SQ TID [facility] Last Admin: 12/08/16 13:32 Dose: 5,000 unit Lisinopril (Prinivil) 20 mg PO DAILY [facility] Multivitamins/Minerals/Vitamin C (Tab-A-Vit -) 1 tab PO DAILY [facility] Last Admin: 12/08/16 09:15 Dose: 1 tab Nicotine (Nicoderm Patch -) 21 mg TD DAILY [facility] Last Admin: 12/08/16 09:15 Dose: 21 mg Pancrelipase (Creon Dr 6,000 Units Capsule) 4 cap PO TIDCM [facility] Last Admin: 12/08/16 11:48 Dose: 4 cap Pantoprazole Sodium (Protonix -) 40 mg PO DAILY [facility] Last Admin: 12/08/16 09:15 Dose: 40 mg Simethicone (Mylicon -) 80 mg PO QID PRN PRN Reason: GAS Last Admin: 12/03/16 10:16 Dose: 80 mg Thiamine HCl (Vitamin B1 -) 100 mg PO DAILY [facility] Last Admin: 12/08/16 09:15 Dose: 100 mg - Objective Vital Signs: Vital Signs Temperature 99.1 F 12/08/16 14:42 Pulse Rate 102 H 12/08/16 14:42 Respiratory Rate 18 12/08/16 14:42 Blood Pressure 142/95 12/08/16 14:42 O2 Sat by Pulse Oximetry (%) 97 12/08/16 09:00 Constitutional: Yes: No Distress, Calm Neck: Yes: Supple, Trachea Midline Cardiovascular: Yes: Regular Rate and Rhythm Respiratory: Yes: Regular, CTA Bilaterally Gastrointestinal: Yes: Normal Bowel Sounds, Soft Musculoskeletal: Yes: WNL Extremities: Yes: WNL Integumentary: Yes: WNL Neurological: Yes: Alert, Oriented Psychiatric: Yes: Alert Labs: CBC, BMP 12/07/16 10:55 12/07/16 10:55 Assessment/Plan ac pancreatitis h/o of peptic ulcer dehydration sepsis due to pancreatitis fever leukocytosis etoh abuse pancreatic phlegmon plan changed abx to oral patient ct scan shows increased in fluid collection no abscess or necrosis as of yet patient might be heading towards formation of pseudo cyst plan should be to follow the pancrease to see and make sure patient does not head towards formation of abscess if patient goes home then patient should be told that if he starts spiking fever to come back to the hospital abx to continue for another 5 days
[2016-12-08] MEDS: LEVOFLOXACIN 250 MG TABLET (FP) PO SCH (17:19)
[2016-12-08] MEDS ORDERED: ONDANSETRON 4 MG/2 ML VIAL IVPUSH PRN (21:02)
[2016-12-09] MEDS: HEPARIN NA (PORCINE) 5,000 UNITS/ML 1ML VIAL SQ SCH ×3 (05:36→21:40)
[2016-12-09] MEDS: LEVOFLOXACIN 250 MG TABLET (FP) PO SCH (05:36)
[2016-12-09] MEDS: LIPASE/PROTEASE/AMYLASE 6,000 UNIT CAPSULE PO SCH ×3 (08:00→17:26)
[2016-12-09] MEDS ORDERED: PT OWN MED DRAWER 7, Y5N ONE ×2 (08:12→11:49)
[2016-12-09] MEDS: MULTIVITAMINS (DAILY MVI) TABLET (FP) PO SCH (09:02)
[2016-12-09] MEDS: PANTOPRAZOLE 40 MG TABLET (FP) PO SCH (09:02)
[2016-12-09] MEDS: FOLIC ACID 1 MG TABLET (FP) PO SCH (09:03)
[2016-12-09] MEDS: LISINOPRIL 20 MG TABLET (FP) PO SCH (09:03)
[2016-12-09] MEDS: THIAMINE HCL 100 MG TABLET (FP) PO SCH (09:03)
[2016-12-09] MEDS: NICOTINE 21 MG/24 HOURS TOPICAL PATCH TD SCH (09:03)
--- NOTE | 2016-12-09 09:54 | PN ---
Progress Note (short form) - Note Progress Note: Subjective: The patient was seen and examined at the bedside, he reports tolerating his diet this morning, denies any nausea or vomiting. He states he get a little bloated right after eating but it only lasts about 5 minutes. Advance diet F/u labs this AM Current Medications Generic Name Dose Route Start Last Admin Trade Name Freq PRN Reason Stop Dose Admin Folic Acid 1 mg 12/02/16 12:00 12/09/16 09:03 Folic Acid - PO 1 mg DAILY RICARDO Administration Heparin Sodium (Porcine) 5,000 unit 12/02/16 22:00 12/09/16 05:36 Heparin - SQ 5,000 unit TID RICARDO Administration Levofloxacin 750 mg 12/08/16 16:00 12/09/16 05:36 Levaquin - PO 750 mg DAILY@0600 RICARDO Administration Lisinopril 20 mg 12/09/16 10:00 12/09/16 09:03 Prinivil PO 20 mg DAILY RICARDO Administration Multivitamins/Minerals/Vitamin C 1 tab 12/02/16 12:00 12/09/16 09:02 Tab-A-Vit - PO 1 tab DAILY RICARDO Administration Nicotine 21 mg 12/02/16 10:00 12/09/16 09:03 Nicoderm Patch - TD 21 mg DAILY RICARDO Administration Ondansetron HCl 4 mg 12/08/16 21:02 Zofran Injection IVPUSH Q6H PRN NAUSEA AND/OR VOMITING Pancrelipase 4 cap 12/04/16 19:30 12/09/16 08:[address] 6,000 Units Capsule PO 4 cap TIDCM RICARDO Administration Pantoprazole Sodium 40 mg 12/04/16 10:00 12/09/16 09:02 Protonix - PO 40 mg DAILY RICARDO Administration Simethicone 80 mg 12/02/16 18:23 12/03/16 10:16 Mylicon - PO 80 mg QID PRN Administration GAS Thiamine HCl 100 mg 12/02/16 12:00 12/09/16 09:03 Vitamin B1 - PO 100 mg DAILY RICARDO Administration Objective: Vital Signs Period Temp Pulse Resp BP Sys/Malhotra Pulse Ox Last 24 Hr 99.0 F-99.6 F 90-102 18-18 104-148/88-103 97-97 Physical Exam: General: NAD, A&Ox3 Lungs: CTA bilaterally Heart: RRR, S1S2 Abd: Soft, non-tender, non-distended. Normoactive bowel sounds Ext: Warm, well-perfused. 2+ DP/PT bilaterally Neuro: CN 2-12 intact CBCD WBC 9.9 K/mm3 (4.0-10.0) 12/07/16 10:55 RBC 3.78 M/mm3 (4.00-5.60) L 12/07/16 10:55 Hgb 11.6 GM/dL (11.7-16.9) L 12/07/16 10:55 Hct 33.9 % (35.4-49) L 12/07/16 10:55 MCV 89.6 fl (80-96) 12/07/16 10:55 MCHC 34.2 g/dl (32.0-35.9) 12/07/16 10:55 RDW 13.8 % (11.9-15.9) 12/07/16 10:55 Plt Count 208 K/MM3 (134-434) D 12/07/16 10:55 MPV 7.4 fl (7.5-11.1) L 12/07/16 10:55 CMP Sodium 138 mmol/L (136-145) 12/07/16 10:55 Potassium 3.8 mmol/L (3.5-5.1) 12/07/16 10:55 Chloride 102 mmol/L (98-107) 12/07/16 10:55 Carbon Dioxide 28 mmol/L (21-32) 12/07/16 10:55 Anion Gap 8 (8-16) 12/07/16 10:55 BUN 5 mg/dL (7-18) L 12/07/16 10:55 Creatinine 0.8 mg/dL (0.7-1.3) 12/07/16 10:55 Creat Clearance w eGFR > 60 (>60) 12/07/16 10:55 Random Glucose 131 mg/dL (74-106) H D 12/07/16 10:55 Calcium 9.1 mg/dL (8.5-10.1) 12/07/16 10:55 Total Bilirubin 0.5 mg/dL (0.2-1.0) D 12/07/16 10:55 AST 42 U/L (15-37) H D 12/07/16 10:55 ALT 37 U/L (12-78) D 12/07/16 10:55 Alkaline Phosphatase 75 U/L (45-117) D 12/07/16 10:55 Total Protein 5.9 g/dl (6.4-8.2) L 12/07/16 10:55 Albumin 2.6 g/dl (3.4-5.0) L 12/07/16 10:55 Microbiology 12/04/16 09:45 Blood - Peripheral Venous Blood Culture - Final NO GROWTH AFTER 5 DAYS INCUBATION 12/05/16 17:00 Stool Salmonella/Shigella Culture - Final NO GROWTH OF SALMONELLA OR SHIGELLA SPECIES OBTAINED 12/05/16 17:00 Stool Campylobacter Culture - Final NO GROWTH OF CAMPYLOBACTER SPECIES OBTAINED 12/05/16 17:00 Stool Yersinia Culture - Final NO GROWTH OF YERSINIA SPECIES OBTAINED 12/05/16 17:00 Stool Vibrio Culture - Final NO GROWTH OF VIBRIO SPECIES OBTAINED 12/05/16 17:00 Stool Escherichia coli 0157 Culture - Final NO GROWTH OF E COLI 0157 OBTAINED 12/04/16 11:25 Blood - Peripheral Venous Blood Culture - Preliminary NO GROWTH OBTAINED AFTER 96 HOURS, INCUBATION TO CONTINUE FOR 1 DAYS. 12/05/16 17:00 Stool Clostridium difficile Antigen (RADHA) - Final 12/05/16 17:00 Stool Clostridium difficile Toxin Assay - Final 12/04/16 09:35 Urine - Urine Clean Catch Urine Culture - Final NO GROWTH OBTAINED Assessment: This is a 36 year old with PMHx of ETOH abuse, peptic ulcer disease who presented to the ED with abdominal pain and was found to have acute pancreatitis. Plan: 1) ID: Severe sepsis 2/2 acute alcoholic pancreatitis - Resolved - Patient remains afebrile - Switched to po Levaquin on 12/08 - CTAP 12/07 with acute pancreatitis with extensive peripancreatic stranding with poorly defined phlegmonous type fluid collection - Patient with vomiting yesterday, diet scaled back to full liquids, he tolerated it well. Will attempt to advance today as tolerated - Discussed with surgery who will re review CT results - Likely discharge once able to tolerate diet - Will need close GI follow-up for phlegmon 2) Psych: ETOH abuse - Continue Thiamine - Continue Folic acid 3) : JOSH - Resolved 4) Cardiology: HTN - Now controlled - Continue Lisinopril 5) F/E/N: - Cholesterol/fat controlled diet - Monitor electrolytes 6) Prophylaxis: - Heparin 5,000u sq tid - OOB ambulating 7) Dispo: - Requires continued inpatient care CODE STATUS: FULL CODE Visit type - Emergency Visit Emergency Visit: Yes ED Registration Date: 12/02/16 Care time: The patient presented to the Emergency Department on the above date and was hospitalized for further evaluation of their emergent condition. - New Patient This patient is new to me today: Yes Date on this admission: 12/09/16 - Critical Care Critical Care patient: No
[2016-12-09 11:49] LABS: MCH 30.5 pg (25.7-33.7); MEAN CELL VOLUME 89.6 fl (80-96); MEAN PLT VOLUME 7.2 fl (7.5-11.1); PLATELET COUNT 312 K/MM3 (134-434); WHITE BLOOD COUNT 13.2 K/mm3 (4.0-10.0)
[2016-12-09 12:11] LABS: ALBUMIN 2.9 g/dl (3.4-5.0); ANION GAP 9 (8-16); BILIRUBIN,TOTAL 0.5 mg/dL (0.2-1.0); CALCIUM 9.6 mg/dL (8.5-10.1); CO2 28 mmol/L (21-32); CREATININE 0.9 mg/dL (0.7-1.3); GLUCOSE,RANDOM 98 mg/dL (74-106); SGOT/AST 51 U/L (15-37); SGPT/ALT 63 U/L (12-78); TOT PROT 6.9 g/dl (6.4-8.2)
--- NOTE | 2016-12-09 12:11 | PN ---
Physical Exam: SUBJECTIVE: Patient seen in f/u and examined; had f/u CT a/p // OBJECTIVE: Vital Signs Temperature 99.0 F 12/09/16 09:00 Pulse Rate 95 H 12/09/16 09:00 Respiratory Rate 18 12/09/16 09:00 Blood Pressure 137/90 12/09/16 09:00 O2 Sat by Pulse Oximetry (%) 97 12/09/16 09:00 GENERAL: The patient is awake, alert, and fully oriented, in no acute distress. ABDOMEN: Soft, nontender, nondistended, normoactive bowel sounds, no guarding, no rebound, no hepatosplenomegaly, no masses. EXTREMITIES: 2+ pulses, warm, well-perfused, no edema. NEUROLOGICAL: Cranial nerves II through XII grossly intact. Normal speech, gait not observed. PSYCH: Normal mood, normal affect. SKIN: Warm, dry, normal turgor, no rashes or lesions noted Laboratory Results - last 24 hr 12/09/16 11:35 WBC 13.2 H D RBC 4.02 Hgb 12.2 Hct 36.0 MCV 89.6 MCHC 34.0 RDW 14.0 Plt Count 312 D MPV 7.2 L Active Medications Generic Name Dose Route Start Last Admin Trade Name Freq PRN Reason Stop Dose Admin Folic Acid 1 mg 12/02/16 12:00 12/09/16 09:03 Folic Acid - PO 1 mg DAILY RICARDO Administration Heparin Sodium (Porcine) 5,000 unit 12/02/16 22:00 12/09/16 05:36 Heparin - SQ 5,000 unit TID RICARDO Administration Levofloxacin 750 mg 12/08/16 16:00 12/09/16 05:36 Levaquin - PO 750 mg DAILY@0600 RICARDO Administration Lisinopril 20 mg 12/09/16 10:00 12/09/16 09:03 Prinivil PO 20 mg DAILY RICARDO Administration Multivitamins/Minerals/Vitamin C 1 tab 12/02/16 12:00 12/09/16 09:02 Tab-A-Vit - PO 1 tab DAILY RICARDO Administration Nicotine 21 mg 12/02/16 10:00 12/09/16 09:03 Nicoderm Patch - TD 21 mg DAILY RICARDO Administration Ondansetron HCl 4 mg 12/08/16 21:02 Zofran Injection IVPUSH Q6H PRN NAUSEA AND/OR VOMITING Pancrelipase 4 cap 12/04/16 19:30 12/09/16 11:[address] 6,000 Units Capsule PO 4 cap TIDCM RICARDO Administration Pantoprazole Sodium 40 mg 12/04/16 10:00 12/09/16 09:02 Protonix - PO 40 mg DAILY RICARDO Administration Simethicone 80 mg 12/02/16 18:23 12/03/16 10:16 Mylicon - PO 80 mg QID PRN Administration GAS Thiamine HCl 100 mg 12/02/16 12:00 12/09/16 09:03 Vitamin B1 - PO 100 mg DAILY RICARDO Administration ASSESSMENT/PLAN: ETOH induced pancreatitis; continue to follow amylase/lipase; trial of liquids; advance diet as tolerated ; will need f/u CT scan a/p. Visit type - Case Type Case Type: ED Admission - Emergency Emergency Visit: Yes ED Registration Date: 12/02/16 Care time: The patient presented to the Emergency Department on the above date and was hospitalized for further evaluation of their emergent condition. - New patient This patient is new to me today: No - Critical Care Critical Care patient: No
[2016-12-09 12:12] LABS: ALK PHOS 84 U/L (45-117)
--- NOTE | 2016-12-09 15:33 | PN ---
GI Progress Note Subjective: abdominal pain resolved tolerated solids - Objective Vital Signs: Vital Signs Temperature 98.5 F 12/09/16 14:00 Pulse Rate 106 H 12/09/16 14:00 Respiratory Rate 18 12/09/16 14:00 Blood Pressure 135/59 12/09/16 14:00 O2 Sat by Pulse Oximetry (%) 97 12/09/16 09:00 Constitutional: Well Nourished Eyes: Yes: Conjunctiva Clear HENT: Yes: Atraumatic Neck: Yes: Supple Cardiovascular: Yes: Regular Rate and Rhythm Respiratory: Yes: CTA Bilaterally ...Palpate: Yes: Soft. No: Firm/Rigid, Guarding, Hepatomegaly, Mass, Pulsatile Mass, Splenomegaly, Tenderness Labs: CBC, BMP 12/09/16 11:35 12/09/16 11:35 Assessment/Plan A> pseudocyst R> continue to abstain from alcohol, will need repeat ct in 4 weeks, made aware to ff-up
--- NOTE | 2016-12-09 15:43 | PN ---
Progress Note, Physician History of Present Illness: patient had solid diet no issues at the moment watching how the patient does - Current Medication List Current Medications: Active Medications Folic Acid (Folic Acid -) 1 mg PO DAILY [facility] Last Admin: 12/09/16 09:03 Dose: 1 mg Heparin Sodium (Porcine) (Heparin -) 5,000 unit SQ TID [facility] Last Admin: 12/09/16 13:47 Dose: 5,000 unit Levofloxacin (Levaquin -) 750 mg PO DAILY@0600 [facility] Last Admin: 12/09/16 05:36 Dose: 750 mg Lisinopril (Prinivil) 20 mg PO DAILY [facility] Last Admin: 12/09/16 09:03 Dose: 20 mg Multivitamins/Minerals/Vitamin C (Tab-A-Vit -) 1 tab PO DAILY [facility] Last Admin: 12/09/16 09:02 Dose: 1 tab Nicotine (Nicoderm Patch -) 21 mg TD DAILY [facility] Last Admin: 12/09/16 09:03 Dose: 21 mg Ondansetron HCl (Zofran Injection) 4 mg IVPUSH Q6H PRN PRN Reason: NAUSEA AND/OR VOMITING Pancrelipase (Creon Dr 6,000 Units Capsule) 4 cap PO TIDCM [facility] Last Admin: 12/09/16 11:51 Dose: 4 cap Pantoprazole Sodium (Protonix -) 40 mg PO DAILY [facility] Last Admin: 12/09/16 09:02 Dose: 40 mg Simethicone (Mylicon -) 80 mg PO QID PRN PRN Reason: GAS Last Admin: 12/03/16 10:16 Dose: 80 mg Thiamine HCl (Vitamin B1 -) 100 mg PO DAILY [facility] Last Admin: 12/09/16 09:03 Dose: 100 mg - Objective Vital Signs: Vital Signs Temperature 98.5 F 12/09/16 14:00 Pulse Rate 106 H 12/09/16 14:00 Respiratory Rate 18 12/09/16 14:00 Blood Pressure 135/59 12/09/16 14:00 O2 Sat by Pulse Oximetry (%) 97 12/09/16 09:00 Constitutional: Yes: No Distress, Calm Cardiovascular: Yes: Regular Rate and Rhythm Respiratory: Yes: Regular, CTA Bilaterally Gastrointestinal: Yes: Normal Bowel Sounds, Soft, Distention Musculoskeletal: Yes: WNL Extremities: Yes: WNL Neurological: Yes: Alert, Oriented Psychiatric: Yes: Alert Labs: CBC, BMP 12/09/16 11:35 12/09/16 11:35 Assessment/Plan ac pancreatitis h/o of peptic ulcer dehydration sepsis due to pancreatitis fever leukocytosis etoh abuse pancreatic phlegmon plan continue oral abx for another [address] scan again to be done in 4 weeks if fever or increased wbc to come back to the hospital alcohol abstinence close watch on his condition
[2016-12-10] MEDS: LEVOFLOXACIN 250 MG TABLET (FP) PO SCH (06:04)
[2016-12-10] MEDS: HEPARIN NA (PORCINE) 5,000 UNITS/ML 1ML VIAL SQ SCH (06:04)
[2016-12-10 08:10] LABS: MCH 30.7 pg (25.7-33.7); MCHC 34.6 g/dl (32.0-35.9); MEAN CELL VOLUME 88.8 fl (80-96); MEAN PLT VOLUME 7.6 fl (7.5-11.1); PLATELET COUNT 336 K/MM3 (134-434); RDW 14.3 % (11.9-15.9); WHITE BLOOD COUNT 12.4 K/mm3 (4.0-10.0)
[2016-12-10] MEDS: LIPASE/PROTEASE/AMYLASE 6,000 UNIT CAPSULE PO SCH (08:21)
[2016-12-10 08:41] LABS: ALBUMIN 2.8 g/dl (3.4-5.0); ALK PHOS 80 U/L (45-117); ANION GAP 12 (8-16); BILIRUBIN,TOTAL 0.5 mg/dL (0.2-1.0); CALCIUM 9.4 mg/dL (8.5-10.1); CO2 27 mmol/L (21-32); CREATININE 0.9 mg/dL (0.7-1.3); GLUCOSE,RANDOM 97 mg/dL (74-106); SGOT/AST 43 U/L (15-37); SGPT/ALT 59 U/L (12-78); TOT PROT 6.5 g/dl (6.4-8.2)
--- NOTE | 2016-12-10 08:59 | DS ---
Physical Examination Vital Signs: Vital Signs Temperature 98.3 F 12/10/16 06:00 Pulse Rate 64 12/10/16 06:00 Respiratory Rate 20 12/10/16 06:00 Blood Pressure 132/64 12/10/16 06:00 O2 Sat by Pulse Oximetry (%) 97 12/09/16 21:00 Findings/Remarks: Physical Exam: General: NAD, A&Ox3 Lungs: CTA bilaterally Heart: RRR, S1S2 Abd: Soft, non-tender, non-distended. Normoactive bowel sounds Ext: Warm, well-perfused. 2+ DP/PT bilaterally Neuro: CN 2-12 intact Labs: CBC, BMP 12/10/16 06:45 12/10/16 06:45 Discharge Summary Reason For Visit: PANCREATIS GASTRODUODENITIS Current Active Problems Alcohol dependence with uncomplicated withdrawal (Acute) Gastroduodenitis (Acute) Pancreatitis (Acute) Hospital Course: This is a 36 year old with PMHx of ETOH abuse, peptic ulcer disease who presented to the ED with abdominal pain and was found to have acute pancreatitis. Plan: 1) ID: Severe sepsis 2/ acute alcoholic pancreatitis - Resolved - Patient remains afebrile - Switched to po Levaquin on 12/08 - CTAP 12/07 with acute pancreatitis with extensive peripancreatic stranding with poorly defined phlegmonous type fluid collection - Patient with vomiting yesterday, diet scaled back to full liquids, he tolerated it well. Will attempt to advance today as tolerated - Discussed with surgery who will re review CT results - Will need close GI follow-up for phlegmon 2) Psych: ETOH abuse - Continue Thiamine - Continue Folic acid 3) : JOSH - Resolved 4) Cardiology: HTN - Now controlled - Continue Lisinopril 5) F/E/N: - Cholesterol/fat controlled diet Discussed with surgery and Dr. French, and Dr. Lopez, patient to be discharged with instructions to follow-up with GI within 1 week to schedule an appointment for a repeat CTAP in 4 weeks to evaluate the phlegmon. Please return to the ED with new, persistent, or worsening symptoms. This discharge took 35 minutes to complete. Condition: Improved - Instructions Diet, Activity, Other Instructions: Please return to the ED with any new, persistent, or worsening symptoms. Please follow-up with providers as indicated. Referrals: Juan French MD [Staff Physician] - (Please follow-up with Dr. French within 1 week to schedule an appointment for a repeat CT scan to evaluate your pancreas in 4 weeks. ) Mateto Wise MD [Staff Physician] - 1 Week Disposition: HOME - Home Medications Comprehensive Discharge Medication List: Ambulatory Orders Omeprazole 10 mg PO DAILY 12/01/16 Folic Acid - 1 mg PO DAILY #30 tablet 12/10/16 Levofloxacin [Levaquin -] 750 mg PO DAILY@0600 #4 tablet 12/10/16 Lipase/Protease/Amylase [Kourtney Joseph 6,000 Units Capsule] 4 cap PO TIDCM #360 capsule. 12/10/16 Lisinopril [Prinivil] 20 mg PO DAILY #30 tablet 12/10/16 Multivitamins [Multivit ([facility] Formulary)] 1 tab PO DAILY #30 tab 12/10/16 Nicotine Patch [Nicoderm Patch -] 21 mg TD DAILY #30 patch 12/10/16 Thiamine HCl [Vitamin B1 -] 100 mg PO DAILY #30 tablet 12/10/16 This patient is new to me today: No Emergency Visit: Yes ED Registration Date: 12/02/16 Care time: The patient presented to the Emergency Department on the above date and was hospitalized for further evaluation of their emergent condition. Critical Care patient: No - Discharge Referral Referred to [facility] Yes Physician Referral: Matteo Law MD ([facility])
[2016-12-10] MEDS: LISINOPRIL 20 MG TABLET (FP) PO SCH (09:40)
[2016-12-10] MEDS: FOLIC ACID 1 MG TABLET (FP) PO SCH (09:40)
[2016-12-10] MEDS: MULTIVITAMINS (DAILY MVI) TABLET (FP) PO SCH (09:40)
[2016-12-10] MEDS: THIAMINE HCL 100 MG TABLET (FP) PO SCH (09:40)
[2016-12-10] MEDS: NICOTINE 21 MG/24 HOURS TOPICAL PATCH TD SCH (09:40)
[2016-12-10] MEDS: PANTOPRAZOLE 40 MG TABLET (FP) PO SCH (09:40)
[2016-12-10 11:49] VITALS: BP 128/71; PULSE 111; TEMP 98.6
== END 2016-12-10 10:01 | disposition home or self-care (01) | DRG 282 ==
LOC: JER 20:46 → JERBED 12-02 02:24 → J8W 12-02 03:32
PROVIDERS: ADMIT Internal Medicine; ATTEND Registered Nurse
PROC: HZ2ZZZZ Detoxification Services for Substance Abuse Treatment (ICD-10-PCS; principal; 2016-12-02)
DX: K85.20 Alcohol induced acute pancreatitis without necrosis or infection (principal); I10 Essential (primary) hypertension; N17.9 Acute kidney failure, unspecified; E83.42 Hypomagnesemia; F10.230 Alcohol dependence with withdrawal, uncomplicated; Z87.11 Personal history of peptic ulcer disease; E87.6 Hypokalemia; E86.0 Dehydration; R50.9 Fever, unspecified; J90 Pleural effusion, not elsewhere classified; F17.210 Nicotine dependence, cigarettes, uncomplicated; K29.90 Gastroduodenitis, unspecified, without bleeding; A41.89 Other specified sepsis; R65.20 Severe sepsis without septic shock; J98.11 Atelectasis
CPT/HCPCS: 36415; 71020-TC; 74176-TC; 74178-TC; 76775-TC; 80053; 80061; 80307; 81003; 81015; 82150; 82570; 83615; 83690; 83721; 83735; 84100; 84156; 85025; 85027; 86850; 86900; 86901; 87040; 87045; 87046; 87086; 87324; 87449; 93005; 93010; 94010; 99282-25; J1644; J3480; Q9967